=== PATIENT | female | born 1955 | race Caucasian/White ===

== ENCOUNTER → 2018-03-10 09:49 | Outpatient (CLI) | payer OTHER, SELFPAY ==
--- NOTE | 2018-03-10 09:53 | DI.MG.S_ITS ---
BILATERAL DIGITAL SCREENING MAMMOGRAM 3D/2D WITH CAD: 03/10/2018 CLINICAL: Routine screening. Comparison is made to exams dated: 12/20/2016 mammogram, 07/31/2015 mammogram, and 07/07/2014 mammogram - [facility]. There are scattered fibroglandular elements in both breasts. Current study was also evaluated with a Computer Aided Detection (CAD) system. No significant masses, calcifications, or other findings are seen in either breast. There has been no significant interval change. IMPRESSION: NEGATIVE There is no mammographic evidence of malignancy. A 1 year screening mammogram is recommended. This exam was interpreted at Station ID: [id number]. NOTE: For mammograms, a report in lay terms will be sent to the patient. Approximately 15% of breast malignancies will not be visualized mammographically. In the management of a palpable breast mass, a negative mammogram must not discourage biopsy of a clinically suspicious lesion. Electronically Signed By: Sreedhar kirkland/mercedes:03/11/2018 08:38:05 letter sent: Normal Exam ACR BI-RADS Category 1: Negative [id number]
== END ==
PROVIDERS: PCP Family Medicine; Visit Provider Family Medicine
DX: Z12.31 Encounter for screening mammogram for malignant neoplasm of breast (principal); M85.852 Other specified disorders of bone density and structure, left thigh; Z78.0 Asymptomatic menopausal state; E07.9 Disorder of thyroid, unspecified; Z90.722 Acquired absence of ovaries, bilateral
CPT/HCPCS: 77063; 77067; 77080

== ENCOUNTER → 2018-03-16 10:45 | Outpatient (CLI) | payer OTHER, SELFPAY | PROVIDERS: PCP Family Medicine; Visit Provider Physician Assistant | DX: N39.0 Urinary tract infection, site not specified (principal) | CPT/HCPCS: 87077; 87086; 87186 ==

== ENCOUNTER → 2019-03-16 11:36 | Outpatient (CLI) | payer MEDICARE, OTHER, SELFPAY ==
--- NOTE | 2019-03-16 | DI.MG.S_ITS ---
BILATERAL DIGITAL SCREENING MAMMOGRAM 3D/2D WITH CAD: 03/16/2019 CLINICAL: Routine screening. Comparison is made to exams dated: 03/10/2018 mammogram, 12/20/2016 mammogram, and 07/31/2015 mammogram - [facility]. There are scattered fibroglandular elements in both breasts. Current study was also evaluated with a Computer Aided Detection (CAD) system. No significant masses, calcifications, or other findings are seen in either breast. There has been no significant interval change. IMPRESSION: NEGATIVE There is no mammographic evidence of malignancy. A 1 year screening mammogram is recommended. This exam was interpreted at Station ID: [id number]. NOTE: For mammograms, a report in lay terms will be sent to the patient. Approximately 15% of breast malignancies will not be visualized mammographically. In the management of a palpable breast mass, a negative mammogram must not discourage biopsy of a clinically suspicious lesion. Electronically Signed By: Ema davenport/mercedes:03/16/2019 13:09:23 letter sent: Normal Exam ACR BI-RADS Category 1: Negative [id number]
== END ==
PROVIDERS: PCP Family Medicine; Visit Provider Family Medicine
DX: Z12.31 Encounter for screening mammogram for malignant neoplasm of breast (principal)
CPT/HCPCS: 77063; 77067

== ENCOUNTER → 2019-05-20 07:02 | Outpatient (CLI) | payer MEDICARE, OTHER, SELFPAY ==
[2019-05-20 08:12] LABS: Add Manual Diff / Slide Review NO; Basophils Absolute Auto 0 /uL (0-100); Basophils Percent Auto 0.5 % (0-2); Eosinophils Absolute Auto 100 /uL (0-450); Eosinophils Percent Auto 2.2 % (2-4); Hematocrit 41.3 % (36-46); Hemoglobin 13.8 g/dL (12.0-16.0); Lymphocytes Absolute Auto 1600 /uL (1100-4500); Lymphocytes Percent Auto 25.5 % (25-40); Mean Corpuscular HGB Conc 33.4 % (30-36); Mean Corpuscular Hemoglobin 29.2 PG (26-34); Mean Corpuscular Volume 87.4 fL (80-100); Monocytes Absolute Auto 500 /uL (0-900); Monocytes Percent Auto 7.1 % (3-14); Neutrophils Absolute Auto 4100 /uL (1500-7000); Neutrophils Percent Auto 64.7 % (50-75); Platelet Count 228 X10^3/uL (150-400); Red Blood Cell Count 4.73 X10^6/uL (4.0-5.2); Red Cell Distribution Width 13.5 % (11.6-14.8); White Blood Cell Count 6.3 X10^3/uL (4.5-11.0)
[2019-05-20 08:28] LABS: Alanine Aminotransferase 16 IU/L (9-52); Albumin 3.9 g/dL (3.5-5.0); Albumin Globulin Ratio 1.4 (1.0-2.8); Alkaline Phosphatase 86 U/L (38-126); Aspartate Aminotransferase 23 IU/L (14-36); BUN Creatinine Ratio 31.3 (6-22); Bilirubin Total 0.5 mg/dL (0.2-1.3); Blood Urea Nitrogen 25 mg/dL (7-17); Calcium 8.9 mg/dL (8.4-10.2); Carbon Dioxide 28 mmol/L (22-32); Chloride 108 mmol/L (98-107); Cholesterol 190 mg/dL (140-199); Estimated Glomerular Filt Rate > 60.0 mL/min (>60); Globulin 2.8 g/dL (1.7-4.1); Glucose 102 mg/dL (80-110); HDL Cholesterol 55 mg/dL (40-60); HEMOLYSIS < 15 (0-50); LDL Cholesterol Calculated 123 mg/dL (<100); Potassium 3.9 mmol/L (3.4-5.1); Sodium 142 mmol/L (137-145); Total Protein 6.7 g/dL (6.3-8.2); Triglycerides 59 mg/dL (35-150)
[2019-05-20 09:00] LABS: Thyroid Stimulating Hormone 2.02 uIU/mL (0.47-4.68)
== END ==
PROVIDERS: PCP Family Medicine; Visit Provider Family Medicine
DX: E03.9 Hypothyroidism, unspecified (principal)
CPT/HCPCS: 36415; 80053; 80061; 84443; 85025

== ENCOUNTER → 2019-07-10 12:06 | Outpatient (CLI) | payer MEDICARE, OTHER, SELFPAY | PROVIDERS: PCP Family Medicine; Visit Provider Nurse Practitioner | DX: N30.01 Acute cystitis with hematuria (principal) | CPT/HCPCS: 87077; 87086; 87186 ==

== ENCOUNTER → 2020-09-21 09:40 | Outpatient (CLI) | payer MEDICARE, OTHER, SELFPAY | PROVIDERS: PCP Family Medicine; Referring Provider Family Medicine; Visit Provider Family Medicine | DX: Z13.820 Encounter for screening for osteoporosis (principal); M85.852 Other specified disorders of bone density and structure, left thigh; Z78.0 Asymptomatic menopausal state; E07.9 Disorder of thyroid, unspecified; Z90.722 Acquired absence of ovaries, bilateral | CPT/HCPCS: 77080 ==

== ENCOUNTER → 2020-10-12 08:30 | Outpatient (CLI) | payer MEDICARE, OTHER, SELFPAY | PROVIDERS: PCP Family Medicine; Referring Provider Family Medicine; Visit Provider Family Medicine | DX: Z12.39 Encounter for other screening for malignant neoplasm of breast (principal); Z53.20 Procedure and treatment not carried out because of patient's decision for unspecified reasons ==

== ENCOUNTER 2021-06-27 07:42 | Emergency (ER) | payer MEDICARE, OTHER, SELFPAY ==
[2021-06-27 07:50] VITALS: BP 181/87; PULSE 65; RESP 20; TEMP 36.3; O2SAT 94; BMI 25.1
--- NOTE | 2021-06-27 07:55 | ED_ITS ---
HPI - Abdominal Pain General Chief Complaint: Urogenital-Female Stated Complaint: Right abd/back pain Time Seen by Provider: 06/27/21 07:50 History of Present Illness HPI narrative: Patient is a 65-year-old female with history of kidney stones and hypothyroid presenting with right-sided flank pain and right pain. She said that she was fine last evening pain woke her from her sleep. Radiates from her stomach to her back. She feels nauseous. She does have painful frequent urination she denies any fever or chills. Initially this did not feel like a kidney stone but now in the emergency department she is writhing in pain and feels similar. Related Data Previous Rx's Medication Instructions Recorded Resmed AirSense 10 CPAP #1 ea 02/26/19 bupropion HCl 150 mg tablet,12 hr 150 mg PO DAILY #90 tab 08/03/20 sustained-release (Wellbutrin SR) levothyroxine 88 mcg tablet 88 mcg PO QAM #90 tab 08/03/20 (Synthroid) estradiol (Estrace) 1 g VAGINAL 3 TIMES WEEK #42.5 g 08/14/20 metronidazole 0.75 % topical gel 1 applic TOPICAL BID #45 g 11/01/20 lisinopril 20 mg tablet See Rx Instructions .ROUTE 04/05/21 .COMPLEX #90 tab cephalexin 500 mg capsule 500 mg PO BID 7 Days #14 cap 06/27/21 ondansetron 4 mg disintegrating 4 mg PO Q8H PRN #10 tab 06/27/21 tablet oxycodone-acetaminophen 5 mg-325 1 tab PO Q6H PRN #14 tab 06/27/21 mg tablet (Percocet) promethazine 25 mg rectal 25 mg AL Q6H PRN #12 ea 06/27/21 suppository Allergies Allergy/AdvReac Type Severity Reaction Status Date / Time carisoprodol [From SOMA] Allergy Unknown Verified 10/17/20 08:49 nitrofurantoin Allergy Unknown Verified 10/17/20 08:49 [NITROFURANTOIN] Sulfa (Sulfonamide Allergy Unknown Verified 10/17/20 08:49 Antibiotics) [SULFA (SULFONAMIDE ANTIBIOTICS)] Review of Systems Review of Systems Narrative: GENERAL: Denies chills, fatigue, malaise, fever, sweats, travel HEENT: Denies sinus pain, ear pain, sore throat, difficulty swallowing, neck pain RESPIRATORY: Denies dyspnea, cough, wheezing, hemoptysis, sputum. CARDIOVASCULAR: Denies chest pain, palpitations, orthopnea, edema GASTROINTESTINAL: Denies nausea, vomiting, abdominal pain, diarrhea, constipation, melena. : See HPI MUSCULOSKELETAL: Denies weakness, joint pain, or bony pain SKIN: No rash, no erythema, no pruritus NEUROLOGIC: Denies weakness, dizziness, headache, numbness, change in speech, confusion PSYCHIATRIC: No concerning psychosocial issues. 12 point review of systems is negative except for those stated above and HPI Patient History Medical History (Updated 06/27/21 @ 09:46 by Nadine Espinsoa DO) Diverticulosis Hypothyroidism (11/02/13) Rosacea (11/20/15) Sleep apnea Surgical History Anesthesia History of bilateral salpingo-oophorectomy (BSO) (2012) History of lithotripsy (2012) Status post surgery (07/17/10) Family History Brother Age: 69 Colon cancer Mother Cancer Pneumonia Ovarian cancer Father Lung cancer Colon cancer Alcoholism Grandfather OR (myocardial infarction) Grandmother No problems noted. Sister Diabetes mellitus Family/Other Ovarian cancer Family/Other Heart disease Family/Other Heart disease Family/Other Heart disease Family/Other Heart disease Family/Other Heart disease Family/Other Heart disease Social History marital status: Smoking Status: Never smoker alcohol intake: current (1-3 A WEEK ) substance use type: does not use Smoking Status: Never smoker Exam Initial Vital Signs Initial Vital Signs: Vital Signs Temperature 97.3 F L 06/27/21 07:50 Pulse Rate 65 06/27/21 07:50 Respiratory Rate 20 06/27/21 07:50 Blood Pressure 181/87 H 06/27/21 07:50 Pulse Oximetry 94 06/27/21 07:50 GENERAL: 65-year-old female appears in pain nauseous, with dry heaving HEENT: Head atraumatic,EOMI, pupils reactive, face symmetric, moist mucous membranes CARDIOVASCULAR: Regular rate and rhythm without murmurs, rubs or gallops. RESPIRATORY: Breath sounds equal bilaterally, no wheezes rales or rhonchi. ABDOMEN: Soft, nontender. Normoactive bowel sounds all 4 quadrants. No guarding or rebound. : Right CVA tenderness EXTREMITIES: Normal range of motion, no clubbing or edema. Neurovascularly intact NEUROLOGICAL: Alert and oriented x4.Normal gait and speech. SKIN: Warm, dry, no laceration, no petechiae, no rashes or lesions. Course Orders Ordered: ED Orders 06/27/21 08:00 Complete Blood Count AUTO DIFF Stat Comprehensive Metabolic Panel Stat Lipase Stat Urinalysis and Microscopic Stat Urine Culture Stat 06/27/21 08:02 CT kidney ureter bladder (KUB) Stat Discontinued Medications Hydromorphone HCl (Hydromorphone 1 Mg Inj) 1 mg IV NOW ONE Stop: 06/27/21 08:20 Last Admin: 06/27/21 08:29 Dose: 1 mg Documented by: MARGARETTE Sodium Chloride (Normal Saline 0.9%) 1,000 mls @ 1,000 mls/hr IV CONT ODALIS Last Infusion: 06/27/21 11:17 Dose: 0 mls/hr Documented by: Admin: 06/27/21 08:08 Dose: 1,000 mls/hr Documented by: RUTHY Lidocaine HCl 5.1 ml/ Sodium (Chloride) 55.1 mls @ 330.6 mls/hr IV NOW ONE Stop: 06/27/21 08:36 Last Infusion: 06/27/21 09:30 Dose: 0 mls/hr Documented by: Admin: 06/27/21 09:06 Dose: 330.6 mls/hr Documented by: RUTHY Ketorolac Tromethamine (Ketorolac 30 Mg/Ml Vial) 30 mg IV NOW ONE Stop: 06/27/21 07:54 Last Admin: 06/27/21 08:08 Dose: 30 mg Documented by: RUTHY Morphine Sulfate (Morphine 2 Mg/Ml Inj) 2 mg IV NOW ONE Stop: 06/27/21 08:10 Last Admin: 06/27/21 08:11 Dose: 2 mg Documented by: RUTHY Ondansetron HCl (Ondansetron 4 Mg/2 Ml Inj) 4 mg IV NOW ONE Stop: 06/27/21 07:54 Last Admin: 06/27/21 08:08 Dose: 4 mg Documented by: RUTHY Vital Signs Vital signs: Vital Signs - 8 hr 06/27/21 07:50 06/27/21 09:12 06/27/21 09:30 Temperature 97.3 F L Pulse Rate 65 71 68 Respiratory Rate 20 Blood Pressure 181/87 H 172/114 H 174/81 H Pulse Oximetry 94 99 97 06/27/21 10:00 06/27/21 11:25 Temperature Pulse Rate 80 66 Respiratory Rate Blood Pressure 192/94 H 145/72 H Pulse Oximetry 97 98 MDM - Abdominal Pain Lab Data Result diagrams: 06/27/21 08:00 06/27/21 08:00 Labs: Lab Results 06/27/21 06/27/21 06/27/21 Range/Units 08:00 08:00 08:00 WBC 8.4 (4.5-11.0) X10^3/uL RBC 4.96 (4.0-5.2) X10^6/uL Hgb 14.4 (12.0-16.0) g/dL Hct 43.6 (36-46) % MCV 88.0 (80-100) fL MCH 29.1 (26-34) PG MCHC 33.0 (30-36) % RDW 13.2 (11.6-14.8) % Plt Count 272 (150-400) X10^3/uL Neut % (Auto) 56.9 (50-75) % Lymph % (Auto) 32.7 (25-40) % Martin % (Auto) 7.2 (3-14) % Eos % (Auto) 1.9 L (2-4) % Baso % (Auto) 1.3 (0-2) % Neut # (Auto) 4800 (0763-5646) /uL Lymph # (Auto) 2800 (0170-9408) /uL Martin # (Auto) 600 (0-900) /uL Eos # (Auto) 200 (0-450) /uL Baso # (Auto) 100 (0-100) /uL Sodium 138 (137-145) mmol/L Potassium 4.3 (3.4-5.1) mmol/L Chloride 106 (98-107) mmol/L Carbon Dioxide 23 (22-32) mmol/L BUN 18 H (7-17) mg/dL Creatinine 0.90 (0.52-1.04) mg/dL Estimated GFR > 60.0 (>60) mL/min BUN/Creatinine Ratio 20.0 (6-22) Glucose 112 H (80-110) mg/dL Calcium 9.5 (8.4-10.2) mg/dL Total Bilirubin 1.1 (0.2-1.3) mg/dL AST 23 (14-36) IU/L ALT 12 (<35) IU/L Alkaline Phosphatase 65 (38-126) U/L Total Protein 7.4 (6.3-8.2) g/dL Albumin 4.5 (3.5-5.0) g/dL Globulin 2.9 (1.7-4.1) g/dL Albumin/Globulin Ratio 1.6 (1.0-2.8) Lipase 53 (23-300) U/L Urine Color Yellow Urine Appearance Clear Urine pH 8.0 (4.5-8.0) Ur Specific [place] 1.010 (1.000-1.035) Urine Protein Negative (Negative) Urine Glucose (UA) Negative (Negative) g/dL Urine Ketones Negative (NEGATIVE) Urine Occult Blood Negative (Negative) Urine Nitrate Negative (Negative) Urine Bilirubin Negative (NEGATIVE) Urine Urobilinogen 0.2 (0.2) E.U./dL Ur Leukocyte Esterase Trace H (NEGATIVE) Urine RBC None seen (0-5/HPF) Urine WBC 10-30/hpf H (0-5/HPF) Ur Squamous Epith Cells 0-1 /hpf (0-5/HPF) Amorphous Sediment 3+ Urine Bacteria Moderate (10-30) H (None) Ur Culture Indicated? Specimen cultured Imaging Data CT scan - abdomen/pelvis: Radiologist's Impression: P all ROCEDURE:? CT KIDNEY URETER BLADDER (KUB) ? INDICATIONS:? right flank pain ? TECHNIQUE:? Axial sections were acquired from the lung bases to the pubic symphysis.? Coronal and sagittal reformats were performed.? For radiation dose reduction, the following was used: ?automated exposure control, adjustment of mA and/or kV according to patient size.? ? COMPARISON:? [facility], CT, ABDOMEN/PELVIS WITH CONTRAST, 09/02/2017, 10:52.? [facility], CT, KIDNEY/ URETER/BLADDER, 11/19/2013, 11:21. ? FINDINGS:? Image quality:? Excellent.? ? Lung bases:? Unremarkable.? ? Heart:? Minimal pericardial effusion.? Normal heart size. ? URINARY: Right Kidney:? No stones.? Iidv-yg-egsssiwd hydronephrosis.? Right Ureter:? Mngj-om-jupbnsvl hydroureter to just proximal to the ur eterovesical junction, where there is a 4 mm obstructing stone.? ? Left Kidney: ? No stones or hydronephrosis. Left Ureter:? No hydroureter.? ? Bladder:? Normal wall thickness. No stones. ? ? ? ABDOMEN: Liver:? Unchanged low-density left lobe liver lesion, known to be a hemangioma, measuring approximately 2.2 cm.? No suspicious masses identified .? ? Gallbladder:? Unremarkable.? ? Biliary ducts:? Unremarkable.? ? Pancreas:? Unremarkable.? ? Spleen:? Unremarkable.? ? Adrenal Glands:? Unremarkable.? ? ? Stomach and Bowel:? Small hiatal hernia.? Extensive sigmoid diverticulosis without evidence of diverticulitis.? Mobile sigmoid.? No dilated loops.? No wall thickening. Peritoneum:? No abnormal intraperitoneal fluid.? No free air.? ? Ventral Wall: ? No hernia.? Abdominal Nodes:? No enlarged retroperitoneal or mesenteric lymph nodes.? Vessels:? Aorta and inferior vena cava are normal in size.? ? PELVIS: Pelvic Organs:? Numerous small calcified uterine fibroids. Pelvic Nodes: Unremarkable. Miscellaneous: No inguinal hernias are seen. ? ? ? Bones:? Mild degenerative change. ? IMPRESSION:? ? 1. A 4 mm stone obstructs the distal right ureter just above the ureterovesical junction, resulting in uwhu-ae-ioslstbk hydronephrosis. ? 2. Extensive sigmoid diverticulosis without evidence of diverticulitis. ? 3. Small hiatal hernia. ? 4. Known left lobe liver hemangioma.? Dictated by: Jm Smith M.D. on 06/27/2021 at 8:13 ? ? [facility] Narrative Medical decision making narrative: Patient is writhing in pain she has been given multiple medications Toradol morphine dilaudid and lidocaine. Pain seems to be more under control. CT confirms that she has a 4 mm stone. Blood work is overall reassuring she does have some bacteria in her urine and will likely require antibiotics. At this time patient does not require admission. Discussion of pain control at home and when to return to the emergency department. She has had reactions to hydrocodone and Percocet and she is requesting p.o. Dilaudid which I have explained to her is not an option. She finally agrees to hydrocodone and to anti nausea medication Discharge Plan Departure Patient Disposition: Home Clinical Impression: Kidney stone on right side, Acute UTI Instructions: DI for Kidney Stones, DI for Urinary Tract Infection (UTI) Activity Restrictions/Additional Instructions: *You have been diagnosed with kidney stone on the right side and UTI *What to do: Your kidney stone is 4 mm. You should pass this. It will be painful but the goal is for pain to be tolerated at home. Will need to drink water or Gatorade. *Continue to take medications as directed--> SENT TO [facility] [place] Motrin 600mg every 6-8 hours if needed for whdy-sr-gegfetcz pain (Next dose 4:30 PM) Zofran 4 mg every 8 hours for nausea or vomiting Phenergan 25 mg suppository if needed for persistent nausea or vomiting Percocet 2 tablet every 6 hours for severe pain Keflex 500 mg 2 times a day for 7 days *Follow up with your primary care provider in 2-3 days *Return to ER if you should have pain is uncontrolled, fever, persistent vomiting, not drinking fluids or any new, worsening or concerning symptoms CONTROLLED SUBSTANCE DISCHARGE (Narcotoic/benzodiazepine/Flexeril/Phenergan) 1. You have been prescribed narcotic medications, it does have acetaminophe n/Tylenol/paracetamol in it, DO NOT TAKE MORE THAN 4,00mg in 24 hours of Tylenol. TRAMADOL DOES NOT CONTAIN TYLENOL 2. Please understand that we cannot provide further refills of narcotics, benzodiazepines or controlled substances through the ED and her pain management will need to be through your provider. 3. While on these medications you cannot drive or operate heavy machinery. 4. You cannot sign legal documents or perform any duties such as this. 5. As long as you're taking opiate pain medications he should also be taking a stool softener such as Colace, Dulcolax, MiraLAX or prune juice, to help avoid constipation. Prescriptions: New promethazine 25 mg suppository 25 mg AL Q6H PRN (Reason: nausea and vomiting) Qty: 12 RF: 0 ondansetron 4 mg tablet,disintegrating 4 mg PO Q8H PRN (Reason: nausea and vomiting) Qty: 10 RF: 0 oxycodone-acetaminophen [Percocet] 5-325 mg tablet 1 tab PO Q6H PRN (Reason: pain) Qty: 14 RF: 0 cephalexin 500 mg capsule 500 mg PO BID 7 Days Qty: 14 RF: 0 No Action (DME) Resmed AirSense 10 CPAP Qty: 1 RF: 0 bupropion HCl [Wellbutrin SR] 150 mg tablet sustained-release 12 hr 150 mg PO DAILY Qty: 90 RF: 3 levothyroxine [Synthroid] 88 mcg tablet 88 mcg PO QAM Qty: 90 RF: 3 estradiol [Estrace] 0.01 % (0.1 mg/gram) cream 1 g Vaginal 3 TIMES WEEK Qty: 42.5 RF: 3 metronidazole 0.75 % gel 1 applic topical BID Qty: 45 RF: 2 lisinopril 20 mg tablet See Rx Instructions .ROUTE .COMPLEX Qty: 90 RF: 3 Referrals: Bertrand Rocha MD [Primary Care Provider] -
--- NOTE | 2021-06-27 08:02 | DI.CT.S_ITS ---
P all ROCEDURE: CT KIDNEY URETER BLADDER (KUB) INDICATIONS: right flank pain TECHNIQUE: Axial sections were acquired from the lung bases to the pubic symphysis. Coronal and sagittal reformats were performed. For radiation dose reduction, the following was used: automated exposure control, adjustment of mA and/or kV according to patient size. COMPARISON: [facility], CT, ABDOMEN/PELVIS WITH CONTRAST, 09/02/2017, 10:52. [facility], CT, KIDNEY/ URETER/BLADDER, 11/19/2013, 11:21. FINDINGS: Image quality: Excellent. Lung bases: Unremarkable. Heart: Minimal pericardial effusion. Normal heart size. URINARY: Right Kidney: No stones. Gyvf-im-qdukmstv hydronephrosis. Right Ureter: Kazq-ig-azjpslnh hydroureter to just proximal to the ureterovesical junction, where there is a 4 mm obstructing stone. Left Kidney: No stones or hydronephrosis. Left Ureter: No hydroureter. Bladder: Normal wall thickness. No stones. ABDOMEN: Liver: Unchanged low-density left lobe liver lesion, known to be a hemangioma, measuring approximately 2.2 cm. No suspicious masses identified . Gallbladder: Unremarkable. Biliary ducts: Unremarkable. Pancreas: Unremarkable. Spleen: Unremarkable. Adrenal Glands: Unremarkable. Stomach and Bowel: Small hiatal hernia. Extensive sigmoid diverticulosis without evidence of diverticulitis. Mobile sigmoid. No dilated loops. No wall thickening. Peritoneum: No abnormal intraperitoneal fluid. No free air. Ventral Wall: No hernia. Abdominal Nodes: No enlarged retroperitoneal or mesenteric lymph nodes. Vessels: Aorta and inferior vena cava are normal in size. PELVIS: Pelvic Organs: Numerous small calcified uterine fibroids. Pelvic Nodes: Unremarkable. Miscellaneous: No inguinal hernias are seen. Bones: Mild degenerative change. IMPRESSION: 1. A 4 mm stone obstructs the distal right ureter just above the ureterovesical junction, resulting in otdo-ut-rwpmzupp hydronephrosis. 2. Extensive sigmoid diverticulosis without evidence of diverticulitis. 3. Small hiatal hernia. 4. Known left lobe liver hemangioma. Dictated by: Jm Smith M.D. on 06/27/2021 at 8:13 Approved by: Jm Smith M.D. on 06/27/2021 at 8:22
[2021-06-27] MEDS: SODIUM CHLORIDE 0.9% 1,000 ML 1000 ML IV (08:08)
[2021-06-27] MEDS: KETOROLAC 30 MG/ML VIAL IV (08:08)
[2021-06-27] MEDS: ONDANSETRON 4 MG/2 ML INJ IV (08:08)
[2021-06-27] MEDS: MORPHINE 2 MG/ML INJ IV (08:11)
[2021-06-27 08:14] LABS: Add Manual Diff / Slide Review NO; Basophils Absolute Auto 100 /uL (0-100); Basophils Percent Auto 1.3 % (0-2); Eosinophils Absolute Auto 200 /uL (0-450); Eosinophils Percent Auto 1.9 % (2-4); Hematocrit 43.6 % (36-46); Hemoglobin 14.4 g/dL (12.0-16.0); Lymphocytes Absolute Auto 2800 /uL (1100-4500); Lymphocytes Percent Auto 32.7 % (25-40); Mean Corpuscular Hemoglobin 29.1 PG (26-34); Monocytes Absolute Auto 600 /uL (0-900); Monocytes Percent Auto 7.2 % (3-14); Neutrophils Absolute Auto 4800 /uL (1500-7000); Neutrophils Percent Auto 56.9 % (50-75); Platelet Count 272 X10^3/uL (150-400); Red Blood Cell Count 4.96 X10^6/uL (4.0-5.2); Red Cell Distribution Width 13.2 % (11.6-14.8); White Blood Cell Count 8.4 X10^3/uL (4.5-11.0)
[2021-06-27 08:26] LABS: Alanine Aminotransferase 12 IU/L (<35); Albumin 4.5 g/dL (3.5-5.0); Albumin Globulin Ratio 1.6 (1.0-2.8); Alkaline Phosphatase 65 U/L (38-126); Appearance Urine UA CLEAR; Aspartate Aminotransferase 23 IU/L (14-36); Bilirubin Total 1.1 mg/dL (0.2-1.3); Bilirubin Urine UA NEGATIVE (NEGATIVE); Blood Urea Nitrogen 18 mg/dL (7-17); Calcium 9.5 mg/dL (8.4-10.2); Carbon Dioxide 23 mmol/L (22-32); Chloride 106 mmol/L (98-107); Color Urine UA YELLOW; Estimated Glomerular Filt Rate > 60.0 mL/min (>60); Globulin 2.9 g/dL (1.7-4.1); Glucose 112 mg/dL (80-110); Glucose Urine UA NEGATIVE (Negative); HEMOLYSIS 20 (0-50); Ketones Urine UA NEGATIVE (NEGATIVE); Leukocyte Esterase Urine UA TRACE (NEGATIVE); Lipase 53 U/L (23-300); Nitrite Urine UA NEGATIVE (Negative); Occult Blood Urine UA NEGATIVE (Negative); Potassium 4.3 mmol/L (3.4-5.1); Protein Urine UA NEGATIVE (Negative); Sodium 138 mmol/L (137-145); Total Protein 7.4 g/dL (6.3-8.2); Urobilinogen Urine UA 0.2 E.U./dL (0.2)
[2021-06-27] MEDS: HYDROMORPHONE 1 MG INJ IV (08:29)
[2021-06-27 08:33] LABS: RBC Urine None Seen (0-5/HPF)
[2021-06-27 08:34] LABS: Amorphous Sediment Urine 3+; Bacteria Urine Moderate (10-30); Culture Indicated Urine Specimen Cultured; Squamous Epithelial Cell Urine 0-1 /HPF (0-5/HPF); WBC Urine 10-30/HPF (0-5/HPF)
[2021-06-27] MEDS: LIDOCAINE 2% 5.1 ML in SODIUM CHLORIDE 0.9% 50 ML 330.6 ML IV (09:06)
[2021-06-27 09:12] VITALS: BP 172/114; PULSE 71; O2SAT 99
[2021-06-27 09:30] VITALS: BP 174/81; PULSE 68; O2SAT 97
[2021-06-27 10:00] VITALS: BP 192/94; PULSE 80; O2SAT 97
[2021-06-27 11:25] VITALS: BP 145/72; PULSE 66; O2SAT 98
== END 2021-06-27 11:37 | disposition home or self-care (01) ==
PROVIDERS: Emergency Provider Emergency Medicine; PCP Family Medicine
DX: N20.0 Calculus of kidney (principal); N39.0 Urinary tract infection, site not specified
CPT/HCPCS: 36415; 74176; 80053; 81001; 83690; 85025; 87077; 87086; 87186; 96361; 96365; 96375; 99284; J1170; J1885; J2270; J2405

== ENCOUNTER 2021-06-29 05:25 | Observation (INO) | payer MEDICARE, OTHER, SELFPAY ==
[2021-06-29] VITALS (16 sets, daily range): BP systolic 88–129; BP diastolic 52–95; PULSE 84–108; RESP 12–20; TEMP 36.6–37.4; O2SAT 93–99; BMI 24.2
--- NOTE | 2021-06-29 | DI.RAD.S_ITS ---
PROCEDURE: XR ABDOMEN 1V INDICATIONS: RIGHT STENT PLACEMENT TECHNIQUE: One fluoroscopic view of the abdomen acquired. COMPARISON: [facility], ABDOMEN 1 VIEW, 05/08/2017, 13:46. [facility], ABDOMEN 1 VIEW, 11/13/2013, 10:51. FINDINGS: Superior portion of the right ureteral stent projects in the expected region of the right kidney. IMPRESSION: Image guidance provided. Dictated by: Domo Briceño M.D. on 06/29/2021 at 9:49 Approved by: Domo Briceño M.D. on 06/29/2021 at 9:50
[2021-06-29 05:55] LABS: Add Manual Diff / Slide Review NO; Basophils Absolute Auto 200 /uL (0-100); Basophils Percent Auto 0.8 % (0-2); Eosinophils Absolute Auto 100 /uL (0-450); Eosinophils Percent Auto 0.3 % (2-4); Hematocrit 39.6 % (36-46); Hemoglobin 13.4 g/dL (12.0-16.0); Lymphocytes Absolute Auto 500 /uL (1100-4500); Lymphocytes Percent Auto 2.3 % (25-40); Mean Corpuscular HGB Conc 33.7 % (30-36); Mean Corpuscular Hemoglobin 29.5 PG (26-34); Mean Corpuscular Volume 87.5 fL (80-100); Monocytes Absolute Auto 600 /uL (0-900); Monocytes Percent Auto 2.9 % (3-14); Neutrophils Absolute Auto 20400 /uL (1500-7000); Neutrophils Percent Auto 93.7 % (50-75); Platelet Count 147 X10^3/uL (150-400); Red Blood Cell Count 4.53 X10^6/uL (4.0-5.2); Red Cell Distribution Width 13.5 % (11.6-14.8); White Blood Cell Count 21.8 X10^3/uL (4.5-11.0)
[2021-06-29] MEDS: SODIUM CHLORIDE 0.9% 1,000 ML 1000 ML IV (05:57)
[2021-06-29] MEDS: ONDANSETRON 4 MG/2 ML INJ IV (05:57)
[2021-06-29] MEDS: KETOROLAC 30 MG/ML VIAL 15 MG IV (05:58)
[2021-06-29 05:59] LABS: Appearance Urine UA Slightly Cloudy; Bilirubin Urine UA NEGATIVE (NEGATIVE); Color Urine UA YELLOW; Glucose Urine UA NEGATIVE (Negative); Ketones Urine UA NEGATIVE (NEGATIVE); Leukocyte Esterase Urine UA TRACE (NEGATIVE); Nitrite Urine UA NEGATIVE (Negative); Occult Blood Urine UA 2+ (Negative); Protein Urine UA 1+ (Negative); Specific Gravity Urine UA 1.015 (1.000-1.035); Urobilinogen Urine UA 0.2 E.U./dL (0.2)
[2021-06-29 06:02] LABS: RBC Urine 0-1/HPF (0-5/HPF); WBC Urine 5-10/HPF (0-5/HPF)
[2021-06-29 06:03] LABS: Granular Casts Urine 0-1/LPF; Squamous Epithelial Cell Urine 10-30 /HPF (0-5/HPF)
[2021-06-29 06:04] LABS: Bacteria Urine Moderate (10-30); Culture Indicated Urine Cult Not Indicated
[2021-06-29 06:06] LABS: BUN Creatinine Ratio 14.4 (6-22); Blood Urea Nitrogen 31 mg/dL (7-17); Carbon Dioxide 21 mmol/L (22-32); Chloride 103 mmol/L (98-107); Estimated Glomerular Filt Rate 22.7 mL/min (>60); Glucose 128 mg/dL (80-110); HEMOLYSIS < 15 (0-50); Sodium 134 mmol/L (137-145)
--- NOTE | 2021-06-29 06:11 | DI.US.S_ITS ---
PROCEDURE: US RENAL COMPLETE INDICATIONS: RIGHT URETER STONE KNOWN. ACUTE KIDNEY INJURY. TECHNIQUE: Real-time scanning was performed of the kidneys and bladder, with image documentation. COMPARISON: [facility], CT, ABDOMEN/PELVIS WITH CONTRAST, 09/02/2017, 10:52. [facility], CT, CT KIDNEY URETER BLADDER (KUB), 06/27/2021, 8:06. FINDINGS: Kidneys: Kidneys are normal in size. Right kidney measures 11.3 cm long; left kidney measures 10.9 cm long. Right renal cortical thickness is 1.1 cm; left renal cortical thickness is 1.2 cm. Renal cortical echotexture is normal. No suspicious solid mass lesions. Mild to moderate right kidney hydronephrosis. The proximal right ureter measures 1.4 cm. No left kidney hydronephrosis. Bladder: Pre-void bladder volume is 70 mL. Ureteral jets are not seen. The patient did not need to void. Miscellaneous: No free pelvic fluid. Gallbladder is prominent in size. There is gallbladder sludge. No sonographic Carvajal's sign. No pericholecystic fluid. No gallbladder wall thickening appreciated. CBD is within normal limits. Incidentally in the right lobe of the liver is a hyperechoic focus measuring at 2.2 x 1.9 x 1.5 cm. This is seen on prior CTs and prior ultrasound. On the ultrasound from 2016 this measured 2.2 cm. This is consistent with a hemangioma. IMPRESSION: 1. Mild to moderate right kidney hydronephrosis. (Small obstructing distal calculus seen on recent CT KUB). 2. Prominent gallbladder with sludge. 3. Right hepatic hemangioma is again seen. This report is concordant with the overnight preliminary interpretation. Dictated by: Domo Briceño M.D. on 06/29/2021 at 8:34 Approved by: Domo Briceño M.D. on 06/29/2021 at 8:43
--- NOTE | 2021-06-29 06:19 | ED.NAVMDI ---
HPI - Nausea/Vomiting/Diarrhea General Chief complaint: Nausea/Vomiting/Diarrhea Stated complaint: kidney stone problems Time Seen by Provider: 06/29/21 05:32 Source: patient Mode of arrival: Wheelchair Limitations: no limitations History of Present Illness HPI Narrative: 65-year-old female nonsmoker with history of recently diagnosed right-sided kidney stone return hospital she plan unrelenting vomiting, unable to anything, persistent right lower quadrant pain, dizziness, weakness and lightheadedness. She was seen and evaluated a few days ago and found to have a 4 mm stone in her right UVJ. She was treated also for urinary tract infection and sent home on typical therapies. Since then she has had persistent vomiting, having difficulty keeping anything down though she does think that she likely kept her antibiotics on board. She has felt weak and fatigued and generally unwell. Her last oral intake was about 5-6 hours ago. Related Data Previous Rx's Medication Instructions Recorded Resmed AirSense 10 CPAP #1 ea 02/26/19 bupropion HCl 150 mg tablet,12 hr 150 mg PO DAILY #90 tab 08/03/20 sustained-release (Wellbutrin SR) levothyroxine 88 mcg tablet 88 mcg PO QAM #90 tab 08/03/20 (Synthroid) estradiol (Estrace) 1 g VAGINAL 3 TIMES WEEK #42.5 g 08/14/20 metronidazole 0.75 % topical gel 1 applic TOPICAL BID #45 g 11/01/20 lisinopril 20 mg tablet See Rx Instructions .ROUTE 04/05/21 .COMPLEX #90 tab ondansetron 4 mg disintegrating 4 mg PO Q8H PRN #10 tab 06/27/21 tablet oxycodone-acetaminophen 5 mg-325 1 tab PO Q6H PRN #14 tab 06/27/21 mg tablet (Percocet) promethazine 25 mg rectal 25 mg [place] Q6H PRN #12 ea 06/27/21 suppository ciprofloxacin HCl 500 mg tablet 500 mg PO BID #30 tab 06/29/21 Allergies Allergy/AdvReac Type Severity Reaction Status Date / Time carisoprodol [From SOMA] Allergy Unknown Verified 10/17/20 08:49 nitrofurantoin Allergy Unknown Verified 10/17/20 08:49 [NITROFURANTOIN] Sulfa (Sulfonamide Allergy Unknown Verified 10/17/20 08:49 Antibiotics) [SULFA (SULFONAMIDE ANTIBIOTICS)] Review of Systems Review of Systems Narrative: GENERAL: See HPI HEENT: Denies sinus pain, ear pain, sore throat, difficulty swallowing, dizziness. RESPIRATORY: Denies dyspnea, cough, wheezing, hemoptysis, sputum. CARDIOVASCULAR: Denies chest pain, palpitations, orthopnea, edema, GASTROINTESTINAL: See HPI : See HPI MUSCULOSKELETAL: denies weakness, joint pain, or bony pain SKIN: Denies rash, skin lesions, or other NEUROLOGIC: Denies weakness, headache, numbness, change in speech, confusion, seizures, incoordination. PSYCHIATRIC: No concerning psychosocial issues. 12 point review of systems is negative except for those stated above Patient History Medical History (Updated 06/29/21 @ 07:48 by Bhanu Medina MD) Diverticulosis Hypothyroidism (11/02/13) Pyelonephritis of right kidney Right ureteral calculus Rosacea (11/20/15) Sleep apnea Surgical History Anesthesia History of bilateral salpingo-oophorectomy (BSO) (2012) History of lithotripsy (2012) Status post surgery (07/17/10) Family History Brother Age: 69 Colon cancer Mother Cancer Pneumonia Ovarian cancer Father Lung cancer Colon cancer Alcoholism Grandfather [place] (myocardial infarction) Grandmother No problems noted. Sister Diabetes mellitus Family/Other Ovarian cancer Family/Other Heart disease Family/Other Heart disease Family/Other Heart disease Family/Other Heart disease Family/Other Heart disease Family/Other Heart disease Social History marital status: Smoking Status: Never smoker alcohol intake: current substance use type: does not use Smoking Status: Never smoker Substance Use Type: does not use Exam Narrative Exam Narrative: GENERAL: 65 [] year old patient appears stated age. Well-developed patient, in mild distress. HEAD: Atraumatic. Normocephalic. EYES: Pupils equal round and reactive. Extraocular motions intact. No scleral icterus. No injection or drainage. ENT: Dry mucous membranes Nose without bleeding, purulent drainage. Throat without erythema, tonsillar hypertrophy or exudate. Airway patent. NECK: Trachea midline. Non tender CARDIOVASCULAR: Tachycardic but regular rhythm without murmurs, gallops, or rubs. RESPIRATORY: Clear to auscultation. Breath sounds equal bilaterally. No wheezes, rales, or rhonchi. GASTROINTESTINAL: Abdomen soft, non-tender, nondistended. EXTREMITIES: No edema or joint tenderness. BACK: Nontender without deformity or crepitance. No flank tenderness. NEURO: AOx3. SKIN: No rash or erythema of visible areas Initial Vital Signs Initial Vital Signs: Vital Signs Temperature 98 F 06/29/21 05:30 Pulse Rate 106 H 06/29/21 05:30 Respiratory Rate 20 06/29/21 05:30 Blood Pressure 107/67 06/29/21 05:30 Pulse Oximetry 96 06/29/21 05:30 Course Orders Ordered: Discontinued Medications Acetaminophen (Acetaminophen 325 Mg Tablet) 975 mg PO PACUNOW ONE Stop: 06/29/21 08:27 Belladonna Alkaloids/Opium (Belladonna/Opium Suppositories) 1 each [place] NOW ONE Stop: 06/29/21 08:31 Last Admin: 06/29/21 08:30 Dose: 1 each Documented by: YANIRA Benzocaine (Benzocaine/Menthol 1 Dashawn Pkt) 1 each PO NOW ONE Stop: 06/29/21 09:04 Last Admin: 06/29/21 09:07 Dose: 1 each Documented by: KHOI Fentanyl (Fentanyl 100 Mcg/2 Ml Inj) 0 mcg IV Q5MIN PRN PRN Reason: Pain, Moderate (4-6) Fentanyl (Fentanyl 100 Mcg/2 Ml Inj) 0 mcg IV Q5M PRN PRN Reason: Pain, Severe (7-10) Hydroxyzine HCl (Hydroxyzine 50 Mg/Ml Inj) 25 mg IM NOW PRN PRN Reason: Pain, Mild (1-3) Sodium Chloride (Normal Saline 0.9%) 1,000 mls @ 1,000 mls/hr IV BOLUS ONE Stop: 06/29/21 06:32 Last Infusion: 06/29/21 06:25 Dose: 0 mls/hr Documented by: Admin: 06/29/21 05:57 Dose: 1,000 mls/hr Documented by: DARRELL Lactated Ringer's (Lactated Ringers) 1,000 mls @ 1,000 mls/hr IV BOLUS ONE Stop: 06/29/21 07:09 Last Infusion: 06/29/21 07:30 Dose: 0 mls/hr Documented by: Admin: 06/29/21 06:36 Dose: 1,000 mls/hr Documented by: DARRELL Lidocaine HCl 5.1 ml/ Sodium (Chloride) 55.1 mls @ 330.6 mls/hr IV NOW ONE Stop: 06/29/21 06:11 Last Admin: 06/29/21 07:30 Dose: Not Given Documented by: ELIANE Ceftriaxone Sodium 1,000 mg/ (Sodium Chloride) 100 mls @ 200 mls/hr IV NOW ONE Stop: 06/29/21 06:24 Last Infusion: 06/29/21 07:30 Dose: 0 mls/hr Documented by: Admin: 06/29/21 06:30 Dose: 200 mls/hr Documented by: DARRELL Lactated Ringer's (Lactated Ringers) 500 mls @ 25 mls/hr IV CONT ODALIS Ketorolac Tromethamine (Ketorolac 30 Mg/Ml Vial) 15 mg IV NOW ONE Stop: 06/29/21 05:34 Last Admin: 06/29/21 05:58 Dose: 15 mg Documented by: DARRELL Ondansetron HCl (Ondansetron 4 Mg/2 Ml Inj) 4 mg IV NOW ONE Stop: 06/29/21 05:52 Last Admin: 06/29/21 05:57 Dose: 4 mg Documented by: DARRELL Ondansetron HCl (Ondansetron 4 Mg/2 Ml Inj) 4 mg IV NOW PRN PRN Reason: Nausea And Vomiting Tamsulosin HCl (Tamsulosin 0.4 Mg Capsule) 0.4 mg PO NOW ONE Stop: 06/29/21 06:11 Last Admin: 06/29/21 06:30 Dose: 0.4 mg Documented by: DARRELL Vital Signs Vital signs: Vital Signs - 8 hr 06/29/21 05:30 Temperature 98 F Pulse Rate 106 H Respiratory Rate 20 Blood Pressure 107/67 Pulse Oximetry 96 MDM - Nausea/Vomiting/Diarrhea Lab Data Result diagrams: 06/29/21 05:50 06/29/21 05:50 Labs: Lab Results 06/29/21 06/29/21 06/29/21 Range/Units 04:30 05:50 05:50 WBC 21.8 H D (4.5-11.0) X10^3/uL RBC 4.53 (4.0-5.2) X10^6/uL Hgb 13.4 (12.0-16.0) g/dL Hct 39.6 (36-46) % MCV 87.5 (80-100) fL MCH 29.5 (26-34) PG MCHC 33.7 (30-36) % RDW 13.5 (11.6-14.8) % Plt Count 147 L (150-400) X10^3/uL Neut % (Auto) 93.7 H D (50-75) % Lymph % (Auto) 2.3 L D (25-40) % [place] % (Auto) 2.9 L (3-14) % Eos % (Auto) 0.3 L (2-4) % Baso % (Auto) 0.8 (0-2) % Neut # (Auto) 94618 H (7244-2766) /uL Lymph # (Auto) 500 L (5266-6772) /uL [place] # (Auto) 600 (0-900) /uL Eos # (Auto) 100 (0-450) /uL Baso # (Auto) 200 H (0-100) /uL Sodium 134 L (137-145) mmol/L Potassium 4.0 (3.4-5.1) mmol/L Chloride 103 (98-107) mmol/L Carbon Dioxide 21 L (22-32) mmol/L BUN 31 H (7-17) mg/dL Creatinine 2.16 H (0.52-1.04) mg/dL Estimated GFR 22.7 L (>60) mL/min BUN/Creatinine Ratio 14.4 (6-22) Glucose 128 H (80-110) mg/dL Calcium 9.0 (8.4-10.2) mg/dL Urine Color Yellow Urine Appearance Slightly cloudy Urine pH 5.0 (4.5-8.0) Ur Specific [place] 1.015 (1.000-1.035) Urine Protein 1+ H (Negative) Urine Glucose (UA) Negative (Negative) g/dL Urine Ketones Negative (NEGATIVE) Urine Occult Blood 2+ H (Negative) Urine Nitrate Negative (Negative) Urine Bilirubin Negative (NEGATIVE) Urine Urobilinogen 0.2 (0.2) E.U./dL Ur Leukocyte Esterase Trace H (NEGATIVE) Urine RBC 0-1/hpf (0-5/HPF) Urine WBC 5-10/hpf H (0-5/HPF) Ur Squamous Epith Cells 10-30 /hpf H D (0-5/HPF) Urine Bacteria Moderate (10-30) H (None) Granular Casts 0-1/lpf (None) Ur Culture Indicated? Cult not indicated MDM Narrative Medical decision making narrative: Patient with known right UVJ stone in the setting of a urinary tract infection returns with worsening labs now demonstrating leukocytosis of over 20,000 and a bump in her creatinine from normal top over 2. IV fluids administered, IV antibiotics given, urology contacted who request we keep the patient NPO and they will take her to the OR for stenting. Discharge Plan Departure Patient Disposition: Admitted to Surgery Clinical Impression: Kidney stone on right side Admit Date/Time: 06/29/21 06:29 Admit Provider: Bhanu Medina
[2021-06-29] MEDS: cefTRIAXone 1,000 MG in SODIUM CHLORIDE 0.9% 100 ML 200 ML IV (06:30)
[2021-06-29] MEDS: TAMSULOSIN 0.4 MG CAPSULE PO (06:30)
[2021-06-29] MEDS: LACTATED RINGERS 1,000 ML 1000 ML IV (06:36)
--- NOTE | 2021-06-29 06:38 | PC.NURSE ---
She has barely any pain now she said.Will hold off on Lido gtt for now,DR Darden aware.
--- NOTE | 2021-06-29 07:17 | SUR.OPER ---
Lithotomy on padded OR bed, head on pillow, arms secured on padded arm boards at <90 degrees abduction. Legs secured in padded yellow fins stirrups.
[2021-06-29 07:21] LABS: COVID19 -Nasal RAPID Negative (Negative)
--- NOTE | 2021-06-29 07:43 | P.HP_ITS ---
History of Present Illness History of Present Illness Date Patient Seen: 06/29/21 Time Patient Seen: 07:43 Date of Onset of Symptoms: 06/27/21 Chief complaint: kidney stone problems Narrative: The patient is a 65-year-old female was experiencing usual health until on or about 06/27/2021, which he experienced acute onset of severe right flank and abdominal pain. She had associated nausea and vomiting. She presented to [facility] ED, where evaluation identified probable UTI and imaging via CT KUB demonstrated an obstructing 4 mm right distal ureteral calculus. She is prescribed usual analgesics and Keflex. Because of unremittin g pain, nausea, and vomiting she again presented very early this morning for further evaluation and management. Urine culture still pending but currently has growth of Gram-negative bacillus. Dr. Darden administered ceftriaxone in the ED earlier this morning. Creatinine at presentation on 06/27/2021, was 0.9. WBC at that time was 8.4. Repeat laboratories 06/29/2021 demonstrated WBC of 21.4, and rising creatinine to 2.6. Patient History Medical History (Updated 06/29/21 @ 07:48 by Bhanu Medina MD) Diverticulosis Hypothyroidism (11/02/13) Pyelonephritis of right kidney Right ureteral calculus Rosacea (11/20/15) Sleep apnea Surgical History Anesthesia History of bilateral salpingo-oophorectomy (BSO) (2012) History of lithotripsy (2012) Status post surgery (07/17/10) Family & Social History Family History Brother Age: 69 Colon cancer Mother Cancer Pneumonia Ovarian cancer Father Lung cancer Colon cancer Alcoholism Grandfather [place] (myocardial infarction) Grandmother No problems noted. Sister Diabetes mellitus Family/Other Ovarian cancer Family/Other Heart disease Family/Other Heart disease Family/Other Heart disease Family/Other Heart disease Family/Other Heart disease Family/Other Heart disease Safety & Behavioral: Feels Safe in Current Yes Environment Tobacco & Substance use: Smoking Status Never smoker alcohol intake current Substance Use Type does not use Meds Home Medications and Allergies Home Medications Medication Instructions Recorded Confirmed Type Resmed AirSense 10 CPAP #1 ea 02/26/19 10/17/20 Rx bupropion HCl 150 mg tablet,12 hr 150 mg PO DAILY #90 tab 08/03/20 10/17/20 Rx sustained-release (Wellbutrin SR) levothyroxine 88 mcg tablet 88 mcg PO QAM #90 tab 08/03/20 10/17/20 Rx (Synthroid) estradiol (Estrace) 1 g VAGINAL 3 TIMES WEEK #42.5 g 08/14/20 10/17/20 Rx metronidazole 0.75 % topical gel 1 applic TOPICAL BID #45 g 11/01/20 Rx lisinopril 20 mg tablet See Rx Instructions .ROUTE 04/05/21 Rx .COMPLEX #90 tab cephalexin 500 mg capsule 500 mg PO BID 7 Days #14 cap 06/27/21 Rx ondansetron 4 mg disintegrating 4 mg PO Q8H PRN #10 tab 06/27/21 Rx tablet oxycodone-acetaminophen 5 mg-325 1 tab PO Q6H PRN #14 tab 06/27/21 Rx mg tablet (Percocet) promethazine 25 mg rectal 25 mg [place] Q6H PRN #12 ea 06/27/21 Rx suppository Allergies Allergy/AdvReac Type Severity Reaction Status Date / Time carisoprodol [From SOMA] Allergy Unknown Verified 10/17/20 08:49 nitrofurantoin Allergy Unknown Verified 10/17/20 08:49 [NITROFURANTOIN] Sulfa (Sulfonamide Allergy Unknown Verified 10/17/20 08:49 Antibiotics) [SULFA (SULFONAMIDE ANTIBIOTICS)] Review of Systems Review of Systems ROS: Yes All systems reviewed with the patient and are negative except as otherwise documented Exam Vital Signs (past 8 hours): - 06/29/21 05:30 06/29/21 07:28 Temperature 98 F Pulse Rate 106 H 92 H Respiratory Rate 20 20 Blood Pressure 107/67 127/78 Pulse Oximetry 96 99 Oxygen Delivery Method Room Air Narrative Exam Narrative: He is a well-developed and well-nourished ill-appearing woman in moderate distress. Head/neck-sclera clear and pupils are round and equal bilaterally. No visible evidence of adenopathy or JVD. Chest-equal, clear, and unlabored expansion bilaterally. Heart-normal sinus rhythm no abnormal heart tones appreciated. Objective Labs Result Diagrams: 06/29/21 05:50 06/29/21 05:50 Labs: Laboratory Results - last 24 hr 06/29/21 06/29/21 06/29/21 04:30 05:50 05:50 WBC 21.8 H D RBC 4.53 Hgb 13.4 Hct 39.6 MCV 87.5 MCH 29.5 MCHC 33.7 RDW 13.5 Plt Count 147 L Neut % (Auto) 93.7 H D Lymph % (Auto) 2.3 L D [place] % (Auto) 2.9 L Eos % (Auto) 0.3 L Baso % (Auto) 0.8 Neut # (Auto) 73992 H Lymph # (Auto) 500 L [place] # (Auto) 600 Eos # (Auto) 100 Baso # (Auto) 200 H Sodium 134 L Potassium 4.0 Chloride 103 Carbon Dioxide 21 L BUN 31 H Creatinine 2.16 H Estimated GFR 22.7 L BUN/Creatinine Ratio 14.4 Glucose 128 H Calcium 9.0 Urine Color Yellow Urine Appearance Slightly cloudy Urine pH 5.0 Ur Specific [place] 1.015 Urine Protein 1+ H Urine Glucose (UA) Negative Urine Ketones Negative Urine Occult Blood 2+ H Urine Nitrate Negative Urine Bilirubin Negative Urine Urobilinogen 0.2 Ur Leukocyte Esterase Trace H Urine RBC 0-1/hpf Urine WBC 5-10/hpf H Ur Squamous Epith Cells 10-30 /hpf H D Urine Bacteria Moderate (10-30) H Granular Casts 0-1/lpf Ur Culture Indicated? Cult not indicated SARS-CoV-2 (PCR) 06/29/21 06:45 WBC RBC Hgb Hct MCV MCH MCHC RDW Plt Count Neut % (Auto) Lymph % (Auto) [place] % (Auto) Eos % (Auto) Baso % (Auto) Neut # (Auto) Lymph # (Auto) [place] # (Auto) Eos # (Auto) Baso # (Auto) Sodium Potassium Chloride Carbon Dioxide BUN Creatinine Estimated GFR BUN/Creatinine Ratio Glucose Calcium Urine Color Urine Appearance Urine pH Ur Specific [place] Urine Protein Urine Glucose (UA) Urine Ketones Urine Occult Blood Urine Nitrate Urine Bilirubin Urine Urobilinogen Ur Leukocyte Esterase Urine RBC Urine WBC Ur Squamous Epith Cells Urine Bacteria Granular Casts Ur Culture Indicated? SARS-CoV-2 (PCR) Negative Assessment & Plan Assessment and plan (1) Right ureteral calculus: Status: Acute (2) Acute UTI: Status: Acute (3) Pyelonephritis of right kidney: Status: Acute Plan: 1. Schedule urgent CYSTOSCOPY/PLACEMENT RIGHT URETERAL STENT. Reviewed findings and discussed rationale and indications to proceed immediately to the operating room including acute kidney injury, UTI/right pyelonephritis, and intractable pain, nausea, and vomiting. The common side effects, precautions, perioperative limitations/restrictions, and reasonable expectations of outcomes and recovery were explained at length in detail the patient. She wishes to proceed. I further explained that following identification of the offending organism an adequate treatment, return visit to or for definitive laser lithotripsy would be indicated. Time Spent With Patient Critical Care time: I spent a total of [] minutes of critical care time on this patient's care today; this time is exclusive of procedural time.
--- NOTE | 2021-06-29 07:50 | PM.PREOP ---
Pre-operative Note Interval Note History & Physical reviewed/Exam performed by Physician: Yes Changes to H&P: No
[2021-06-29] MEDS: BELLADONNA/OPIUM SUPPOSITORIES 1 EACH PR (08:30)
--- NOTE | 2021-06-29 08:38 | PM.OP.1 ---
Operative Date/Time/Diagnoses Date of procedure: 06/29/21 Time of procedure: 08:39 Pre-op diagnosis: 1. Obstructing 4 mm right distal ureteral calculus. 2. UTI/right pyelonephritis. Post-op diagnosis: same Procedure & Clinicians Procedure: 1. Cystoscopy/right ureteral stone manipulation without removal. 2. Cystoscopy/placement right ureteral stent (6 Filipino by 22-32 cm multi-length). Same procedure as scheduled: Yes Indications: 1. Obstructing 4 mm right distal ureteral calculus. 2. UTI/right pyelonephritis. 3. Intractable right renal colic. Surgeon: Bhanu Medina Click Yes if Unassisted: Yes Anesthesia Type: General Operative Notes Findings: 1. Urethra-normal position and caliber. 2. Bladder-mild hyperemia and small globules of prominent material dependently in the floor. Normal bilateral ureteral orifice. 3. Right ureter-upon instrumentation of the right ureter with the hybrid wire and subsequently the stent there was copious, thick, purulent postobstructive efflux witnessed. Closure Type: not applicable Specimen(s): none sent Applied: other (Six Filipino by 22-32 cm multi-length stent) Estimated Blood Loss (mL): 0 Blood products transfused: none Procedure in detail: The patient was positioned supine administered general anesthesia. She was then repositioned in semi lithotomy and the lower abdomen, genitalia, and groin were then prepped and draped in sterile fashion. The 22 Filipino panendoscope was passed lower urinary tract with the findings as described above. Next, a 0.35 hybrid Glidewire was then advanced through the working port of the panendoscope and then advanced into the right collecting system under direct and fluoroscopic guidance. A 6 Filipino by 22-32 cm multi-length stent was then selected and advanced over the hybrid guidewire, again under direct and fluoroscopic guidance. NO RETRIEVAL LINE WAS LEFT ATTACHED. The bladder was then drained completely and all instrumentation was removed. The patient was then repositioned in supine, was awakened, was transferred to a gurney and transferred recovery in stable condition. Complications: none Post-operative Condition: stable Disposition: PACU Plan for aftercare: Discharge home.
[2021-06-29] MEDS: BENZOCAINE/MENTHOL 1 LOZ PKT 1 EACH PO (09:07)
--- NOTE | 2021-06-29 09:08 | SUR.PHASEI ---
Dr Vieira to bedside at 0900 Updated on patient with dry cough, no SOB, lungs clear, pt states she feels like her throat is just irritated. See new order for Cepacol lozenge.
--- NOTE | 2021-06-29 09:23 | SUR.PHASEI ---
0915 Patient transferred to OPD to Marilyn Gomes who was given SBAR report at bedside. Pt alert, oriented, continues to deny pain, nausea and SOB. Continues with small dry cough in throat. Pt tolerating lozenger and sips of water.
--- NOTE | 2021-06-29 09:27 | SUR.PHASEII ---
0915 Brought to Phase II to watch for any signs of sepsis before returning home. VSS at the moment
--- NOTE | 2021-06-29 12:59 | SUR.PHASEII ---
Dr Jama talked to patient and explaned to her about the antibiotics and what to watch for. Discharge instructions given and sent home via wheelchair
== END 2021-06-29 13:00 | disposition home or self-care (01) ==
LOC: ED 05:32 → AC 06:30
PROVIDERS: Admitting Provider Specialist; Emergency Provider Emergency Medicine; PCP Family Medicine; Referring Provider Emergency Medicine; Visit Provider Specialist
PROC: (CPT 52330; principal; 2021-06-29 07:30)
DX: N20.1 Calculus of ureter (principal); N39.0 Urinary tract infection, site not specified; N12 Tubulo-interstitial nephritis, not specified as acute or chronic; R11.2 Nausea with vomiting, unspecified; G47.33 Obstructive sleep apnea (adult) (pediatric); E03.9 Hypothyroidism, unspecified; I10 Essential (primary) hypertension; Z20.822 Contact with and (suspected) exposure to COVID-19
CPT/HCPCS: 52330; 52332; 36415; 74018; 76000; 76770; 80048; 81001; 85025; 87635; 96365; 96375; 99284; C9803; G0378; J0330; J0696; J1100; J1885; J2250; J2405; J2704; J2765; J3010

== ENCOUNTER → 2021-07-05 16:06 | Outpatient (CLI) | payer MEDICARE, OTHER, SELFPAY ==
[2021-07-05 17:40] LABS: Appearance Urine UA CLOUDY; Bilirubin Urine UA NEGATIVE (NEGATIVE); Color Urine UA YELLOW; Glucose Urine UA NEGATIVE (Negative); Ketones Urine UA NEGATIVE (NEGATIVE); Leukocyte Esterase Urine UA TRACE (NEGATIVE); Nitrite Urine UA NEGATIVE (Negative); Occult Blood Urine UA 3+ (Negative); Protein Urine UA 2+ (Negative); Urobilinogen Urine UA 0.2 E.U./dL (0.2)
[2021-07-05 18:00] LABS: RBC Urine >100/HPF (0-5/HPF); WBC Urine 1-5/HPF (0-5/HPF)
[2021-07-05 18:01] LABS: Squamous Epithelial Cell Urine 5-10 /HPF (0-5/HPF); Transitional Epi Cells Urine 1-5/HPF (0-5/HPF)
[2021-07-05 18:02] LABS: Bacteria Urine Few (2-10); Culture Indicated Urine Cult Not Indicated
[2021-07-05 18:10] LABS: BUN Creatinine Ratio 17.1 (6-22); Blood Urea Nitrogen 18 mg/dL (7-17); Calcium 9.4 mg/dL (8.4-10.2); Carbon Dioxide 26 mmol/L (22-32); Chloride 103 mmol/L (98-107); Estimated Glomerular Filt Rate 52.3 mL/min (>60); Glucose 97 mg/dL (80-110); HEMOLYSIS < 15 (0-50); Potassium 4.5 mmol/L (3.4-5.1); Sodium 138 mmol/L (137-145)
== END ==
PROVIDERS: PCP Family Medicine; Referring Provider Specialist; Visit Provider Family Medicine
DX: R30.0 Dysuria (principal); R35.0 Frequency of micturition; N12 Tubulo-interstitial nephritis, not specified as acute or chronic; N20.1 Calculus of ureter
CPT/HCPCS: 36415; 80048; 81001

== ENCOUNTER → 2021-07-17 15:08 | Outpatient (CLI) | payer MEDICARE, OTHER, SELFPAY ==
--- NOTE | 2021-07-17 15:11 | DI.RAD.S_ITS ---
PROCEDURE: XR KUB INDICATIONS: kidney stones/right ureteral stent TECHNIQUE: One view of the abdomen acquired. COMPARISON: [facility], CT, CT KUB, 06/30/2021, 21:50. [facility], CR, KUB XRAY (1 VIEW ABDOMEN), 06/20/2014, 15:04. FINDINGS: Surgical changes and devices: Right ureteral stent noted Bowel: Bowel gas pattern is normal. Soft tissues: Pelvic calcifications as before. These are better characterized on the recent CT from 06/30/21. Bones: No suspicious bony lesions. IMPRESSION: Status post placement of right ureteral stent in expected location. Previously seen tortuosity of the distal stent appears resolved on the current study. Dictated by: Moris Santana M.D. on 07/17/2021 at 16:58 Approved by: Moris Santana M.D. on 07/17/2021 at 17:00
== END ==
PROVIDERS: PCP Family Medicine; Referring Provider Specialist; Visit Provider Specialist
DX: N20.0 Calculus of kidney (principal); N20.1 Calculus of ureter; Z96.0 Presence of urogenital implants
CPT/HCPCS: 74018

== ENCOUNTER → 2021-07-27 14:53 | Outpatient (CLI) | payer MEDICARE, OTHER, SELFPAY ==
[2021-07-27 15:16] LABS: COVID19 -Nasal RAPID Negative (Negative)
== END ==
PROVIDERS: PCP Family Medicine; Visit Provider Specialist
DX: Z20.822 Contact with and (suspected) exposure to COVID-19 (principal)
CPT/HCPCS: 87635; C9803

== ENCOUNTER 2021-07-30 12:18 | Day surgery (SDC) | payer MEDICARE, OTHER, SELFPAY ==
[2021-07-26 12:21] VITALS: BMI 23.9
[2021-07-30] VITALS (7 sets, daily range): BP systolic 124–141; BP diastolic 74–84; PULSE 65–86; RESP 12–18; TEMP 36.5–36.6; O2SAT 96–98; BMI 23.9
[2021-07-30] MEDS: LACTATED RINGERS 1,000 ML 42 ML IV (13:24)
[2021-07-30] MEDS: CIPROFLOXACIN 400 MG/200 ML PIGGYBACK 200 MG IV (15:18)
--- NOTE | 2021-07-30 15:18 | PM.PREOP ---
Pre-operative Note Interval Note History & Physical reviewed/Exam performed by Physician: Yes Changes to H&P: No
--- NOTE | 2021-07-30 18:09 | SUR.OPER ---
Lithotomy on padded OR bed, head on pillow, arms secured on padded arm boards at <90 degrees abduction. Legs secured in padded yellow fins stirrups.
[2021-07-30] MEDS: BELLADONNA/OPIUM SUPPOSITORIES 1 EACH PR (18:10)
--- NOTE | 2021-07-30 18:17 | P.OP_ITS ---
Operative Date/Time/Diagnoses Date of procedure: 07/30/21 Time of procedure: 18:18 Pre-op diagnosis: 4 mm obstructing right distal ureteral calculus. History of Klebsiella pyelonephritis/sepsis. Retained right ureteral stent. Post-op diagnosis: same Procedure & Clinicians Procedure: 1. Right ureteroscopic laser lithotripsy. 2. Cystoscopy/removal right ureteral stent. Same procedure as scheduled: Yes Indications: 1. 4 mm obstructing right distal ureteral calculus. 2. History of Klebsiella pyelonephritis/sepsis. 3. Retained right ureteral stent. Surgeon: Bhanu Medina Click Yes if Unassisted: Yes Anesthesia Type: General Operative Notes Findings: 1. Urethra-normal caliber without obstruction or lesion. 2. Bladder-normal urothelium throughout normal left ureteral orifice. The right ureteral orifice as surrounding edema and erythema associated with an intact indwelling right ureteral stent. 3. Right ureter-index calculus located at the right ureterovesical junction. Morphology was faceted with sharp corners and edges. Closure Type: not applicable Specimen(s): none sent Estimated Blood Loss (mL): 0 Blood products transfused: none Procedure in detail: The patient was positioned supine and was administered general anesthesia. She was then repositioned in semilithotomy and the lower abdomen, genitalia, and groin were then prepped and draped in sterile fashion. The 22 Congolese panendoscope was then passed lower urinary tract and an alligator foreign body grasper was utilized to engage the distal tip of the right retained stent. He was then withdrawn to the perineum. A 0.35 hybrid guidewire was advanced through the lumen of the retained stent under fluoroscopic guidance. The retained stent was backloaded off the wire discarded. The wire was secured to the drape. Next, the semi rigid ureteral scope was passed into the bladder and then into the right distal ureter with the findings as described above. A 200 micron laser fiber was then selected. All operating room personnel and patient were fitted with laser safety eyewear. Laser lithotripsy was then commenced with subsequent excellent fragmentation of the calculus. The sand and small fragments were then cleared from the distal ureter using both hydrostatic and mechanical agitation. The ureteral scope was then removed and the safety guidewire was removed. The cystoscopic sheath was then reintroduced in the bladder with the obturator and the artery was then removed the bladder contents were drained. The patient was then repositioned in supine, was awakened, and then was transferred to [facility] for transport to PACU in stable condition. Complications: none Post-operative Condition: stable Disposition: PACU Plan for aftercare: Discharge home.
== END 2021-07-30 18:59 | disposition home or self-care (01) ==
PROVIDERS: PCP Family Medicine; Referring Provider Specialist; Visit Provider Specialist
PROC: (CPT 52356; principal; 2021-07-30 14:15)
DX: N20.1 Calculus of ureter (principal); Z87.440 Personal history of urinary (tract) infections; E03.9 Hypothyroidism, unspecified
CPT/HCPCS: 52356; 76000; J0744; J1100; J2405; J2704; J3010

== ENCOUNTER → 2021-10-05 11:39 | Outpatient (CLI) | payer MEDICARE, OTHER, SELFPAY ==
--- NOTE | 2021-10-05 11:42 | DI.RAD.S_ITS ---
PROCEDURE: XR KUB INDICATIONS: Right kidney stone TECHNIQUE: One view of the abdomen acquired. COMPARISON: [facility], CT, CT KUB, 06/30/2021, 21:50. [facility], CR, XR KUB, 07/17/2021, 15:04. FINDINGS: Surgical changes and devices: None. Bowel: Bowel gas pattern is normal. Soft tissues: No definite calcification is seen projecting over the bilateral kidneys. Calcifications in the pelvis do not appear significantly changed when compared to the prior exam. Visualized solid organ contours appear normal in size. Bones: Multilevel degenerative changes are seen in the spine. IMPRESSION: No definite renal calculus is seen radiographically. If symptoms persist, CT could be obtained for further evaluation. Dictated by: Bret Grullon M.D. on 10/05/2021 at 13:09 Approved by: Bret Grullon M.D. on 10/05/2021 at 13:12
== END ==
PROVIDERS: PCP Family Medicine; Referring Provider Specialist; Visit Provider Specialist
DX: N20.1 Calculus of ureter (principal)
CPT/HCPCS: 74018

== ENCOUNTER → 2021-10-06 12:57 | Outpatient (CLI) | payer MEDICARE, OTHER, SELFPAY ==
[2021-10-06 13:20] LABS: Add Manual Diff / Slide Review NO; Basophils Absolute Auto 100 /uL (0-100); Eosinophils Absolute Auto 100 /uL (0-450); Eosinophils Percent Auto 2.1 % (2-4); Hemoglobin 13.5 g/dL (12.0-16.0); Lymphocytes Absolute Auto 2000 /uL (1100-4500); Lymphocytes Percent Auto 31.9 % (25-40); Mean Corpuscular HGB Conc 33.7 % (30-36); Mean Corpuscular Hemoglobin 29.3 PG (26-34); Mean Corpuscular Volume 86.9 fL (80-100); Monocytes Absolute Auto 400 /uL (0-900); Monocytes Percent Auto 6.9 % (3-14); Neutrophils Absolute Auto 3700 /uL (1500-7000); Neutrophils Percent Auto 58.1 % (50-75); Platelet Count 223 X10^3/uL (150-400); Red Cell Distribution Width 13.7 % (11.6-14.8); White Blood Cell Count 6.4 X10^3/uL (4.5-11.0)
[2021-10-06 13:40] LABS: Uric Acid 3.7 mg/dL (2.5-6.2)
[2021-10-06 13:41] LABS: Alanine Aminotransferase 11 IU/L (<35); Albumin 4.3 g/dL (3.5-5.0); Albumin Globulin Ratio 1.4 (1.0-2.8); Alkaline Phosphatase 81 U/L (38-126); Aspartate Aminotransferase 20 IU/L (14-36); BUN Creatinine Ratio 23.6 (6-22); Bilirubin Total 0.5 mg/dL (0.2-1.3); Blood Urea Nitrogen 21 mg/dL (7-17); Calcium 9.4 mg/dL (8.4-10.2); Carbon Dioxide 28 mmol/L (22-32); Chloride 108 mmol/L (98-107); Estimated Glomerular Filt Rate > 60.0 mL/min (>60); Glucose 92 mg/dL (80-110); HEMOLYSIS < 15 (0-50); Potassium 4.1 mmol/L (3.4-5.1); Sodium 141 mmol/L (137-145); Total Protein 7.3 g/dL (6.3-8.2)
[2021-10-06 14:12] LABS: TSH w/ Reflex to FT4 0.73 uIU/mL (0.47-4.68)
[2021-10-07 09:42] LABS: Calcium 9.1 mg/dL (8.7-10.3); Parathyroid Hormone, Intact 56 pg/mL (15-65)
== END ==
PROVIDERS: Specialist; PCP Family Medicine; Referring Provider Family Medicine; Visit Provider Family Medicine
DX: E03.9 Hypothyroidism, unspecified (principal); I10 Essential (primary) hypertension; N20.0 Calculus of kidney; N20.1 Calculus of ureter; E78.5 Hyperlipidemia, unspecified; N12 Tubulo-interstitial nephritis, not specified as acute or chronic
CPT/HCPCS: 36415; 80053; 82310; 83970; 84443; 84550; 85025

== ENCOUNTER → 2021-12-11 07:10 | Outpatient (CLI) | payer MEDICARE, OTHER, SELFPAY ==
[2021-12-11 08:42] LABS: Cholesterol 195 mg/dL (140-199); HDL Cholesterol 54 mg/dL (40-60); LDL Cholesterol Calculated 130 mg/dL (<100); Triglycerides 55 mg/dL (35-150)
== END ==
PROVIDERS: PCP Family Medicine; Referring Provider Family Medicine; Visit Provider Family Medicine
DX: I10 Essential (primary) hypertension (principal); E03.9 Hypothyroidism, unspecified; E78.5 Hyperlipidemia, unspecified
CPT/HCPCS: 36415; 80061

== ENCOUNTER → 2022-06-17 10:03 | Outpatient (CLI) | payer MEDICARE, OTHER, SELFPAY ==
--- NOTE | 2022-06-17 10:06 | DI.RAD.S_ITS ---
PROCEDURE: XR CHEST 2V INDICATIONS: shortness of breath with exertion TECHNIQUE: 2 views of the chest were acquired. COMPARISON: [facility], CHEST 2 VIEW, 08/22/2016, 15:26. [facility], CHEST 2 VIEW, 10/30/2009, 14:36. FINDINGS: Surgical changes and devices: None. Lungs and pleura: Lungs are clear. No pleural effusions or pneumothorax. Mediastinum: Mediastinal contours are normal. Heart size is normal. Bones and chest wall: No suspicious bony abnormalities. Soft tissues appear unremarkable. IMPRESSION: No acute cardiopulmonary abnormality. Dictated by: Domo Briceño M.D. on 06/17/2022 at 9:31 Approved by: Domo Briceño M.D. on 06/17/2022 at 9:32
[2022-06-17 14:47] LABS: Add Manual Diff / Slide Review NO; Basophils Absolute Auto 0 /uL (0-100); Basophils Percent Auto 0.6 % (0-2); Eosinophils Absolute Auto 100 /uL (0-450); Eosinophils Percent Auto 1.9 % (2-4); Hematocrit 38.7 % (36-46); Hemoglobin 12.9 g/dL (12.0-16.0); Lymphocytes Absolute Auto 1700 /uL (1100-4500); Lymphocytes Percent Auto 27.4 % (25-40); Mean Corpuscular HGB Conc 33.4 % (30-36); Mean Corpuscular Hemoglobin 29.3 PG (26-34); Mean Corpuscular Volume 87.7 fL (80-100); Monocytes Absolute Auto 500 /uL (0-900); Monocytes Percent Auto 7.6 % (3-14); Neutrophils Absolute Auto 4000 /uL (1500-7000); Neutrophils Percent Auto 62.5 % (50-75); Platelet Count 222 X10^3/uL (150-400); Red Blood Cell Count 4.41 X10^6/uL (4.0-5.2); Red Cell Distribution Width 13.4 % (11.6-14.8); White Blood Cell Count 6.3 X10^3/uL (4.5-11.0)
[2022-06-17 14:56] LABS: D Dimer 553 ng/ml (<500)
[2022-06-17 15:13] LABS: Alanine Aminotransferase 12 IU/L (<35); Albumin Globulin Ratio 1.4 (1.0-2.8); Alkaline Phosphatase 68 U/L (38-126); Aspartate Aminotransferase 18 IU/L (14-36); BUN Creatinine Ratio 21.3 (6-22); Bilirubin Total 0.6 mg/dL (0.2-1.3); Blood Urea Nitrogen 17 mg/dL (7-17); Calcium 8.7 mg/dL (8.4-10.2); Carbon Dioxide 26 mmol/L (22-32); Chloride 108 mmol/L (98-107); Creatine Kinase 40 U/L (30-135); Estimated Glomerular Filt Rate > 60 mL/min (>60); Globulin 2.8 g/dL (1.7-4.1); Glucose 91 mg/dL (80-110); Potassium 4.3 mmol/L (3.4-5.1); Sodium 140 mmol/L (137-145); Total Protein 6.8 g/dL (6.3-8.2)
[2022-06-17 15:26] LABS: HEMOLYSIS 30 (0-50); Troponin I < 0.012 ng/mL (0.01-0.034)
[2022-06-17 15:31] LABS: Procalcitonin 0.04 ng/mL (<0.5)
== END ==
PROVIDERS: PCP Family Medicine; Referring Provider Student in an Organized Health Care Education/Training Program; Visit Provider Student in an Organized Health Care Education/Training Program
DX: R06.02 Shortness of breath (principal); R05.8 Other specified cough
CPT/HCPCS: 36415; 71046; 80053; 82550; 84145; 84484; 85025; 85379

== ENCOUNTER 2022-06-17 20:29 | Emergency (ER) | payer MEDICARE, OTHER, SELFPAY ==
[2022-06-17 20:32] VITALS: BP 161/89; PULSE 81; RESP 22; TEMP 37.1; O2SAT 97
--- NOTE | 2022-06-17 20:43 | DI.CT.S_ITS ---
PROCEDURE: CT ANGIO CHEST PE PROTOCOL INDICATIONS: covid with sob TECHNIQUE: After the administration of intravenous contrast, 2 mm thick sections acquired from the pulmonary apices to the posterior costophrenic angles. 3-dimensional maximum intensity projection (MIP) coronal and sagittal reformats were then acquired through the thorax. For radiation dose reduction, the following was used: automated exposure control, adjustment of mA and/or kV according to patient size. COMPARISON: [facility], CT, ABDOMEN/PELVIS WITH CONTRAST, 09/02/2017, 10:52. [facility], CT, CT KIDNEY URETER BLADDER (KUB), 06/27/2021, 8:06. [facility], CT, CT KUB, 06/30/2021, 21:50. [facility], CR, XR CHEST 2V, 06/17/2022, 10:15. FINDINGS: Image quality: Excellent. Pulmonary arteries: Pulmonary arteries are normal in size, and demonstrate no intraluminal filling defects to suggest central pulmonary embolism. Lower Neck: No lymphadenopathy by size criteria. Thyroid: Visualized thyroid demonstrates no discrete nodules. Axillae: No lymphadenopathy by size criteria. Chest Wall: Unremarkable. Bones: Visualized osseous structures demonstrate no suspicious lesions. Lungs and Airways: No acute consolidation. There is nodular thickening in the left lower lobe along the major fissure measuring up to 0.6 cm on series 5, image 153. Findings are similar in size compared to the prior studies. The trachea and central airways are patent. Pleura: No pneumothorax or pleural effusions. Heart: Heart size is normal. There is a minimal pericardial effusion. Thoracic Vessels: The thoracic aorta is normal in size. Mediastinum and Yocasta: No lymphadenopathy by size criteria. Esophagus: No wall thickening. No hiatal hernia. Abdomen: Visualized upper abdomen demonstrates a hypoattenuating lesion within the left hepatic lobe measuring approximately 2.6 x 2.5 cm which appears similar in size compared to the study of 09/02/2017 which demonstrated foci of discontinuous peripheral enhancement. The findings are suggestive of a cavernous hemangioma. An additional smaller focal hypodensity within the left hepatic lobe appears unchanged and likely represents a cyst. IMPRESSION: 1. No evidence of pulmonary embolism. 2. No acute airspace consolidation. 3. Minimal pericardial effusion. 4. Hypoattenuating lesion within the left hepatic lobe appears similar in size to the prior studies given differences in technique and likely represents a hemangioma. 5. Nodular thickening in the left lower lobe along the major fissure is suggestive of an intrapulmonary lymph node. Dictated by: Donato Hess M.D. on 06/17/2022 at 22:27 Approved by: Donato Hess M.D. on 06/17/2022 at 22:35
[2022-06-17 21:11] LABS: Creatine Kinase 36 U/L (30-135)
[2022-06-17 21:21] LABS: NT-proBNP (BNP-Adult 18+) 84 pg/mL (<125)
[2022-06-17 21:24] LABS: Troponin I < 0.012 ng/mL (0.01-0.034)
--- NOTE | 2022-06-17 23:16 | ED_ITS ---
HPI - SOB/Dyspnea General Chief Complaint: Shortness of Breath/Dyspnea Stated Complaint: SOB on exertion Time Seen by Provider: 06/17/22 20:42 Source: patient Mode of arrival: Ambulatory History of Present Illness HPI Narrative: Patient is a 66-year-old female history hypertension hypothyroid, presents today with increasing shortness of breath. Patient was diagnosed with COVID 4 weeks ago she has had ongoing cough and shortness of breath. Shortness of breath is definitely worse with exertion today seemed to be little bit worse. She reports some chest tightness. She was actually seen evaluated at walk-in clinic earlier today she had blood work D-dimer is elevated at 553, initially 80 was consulted not recommended to come to the ED at that time however patient came for further evaluation. She says that she has to sleep sitting up because she coughs at night. She denies any new fever or chills. She has a dry nonproductive cough. No known coronary artery disease. Related Data Home Medications Medication Instructions Recorded Confirmed ascorbate calcium (vitamin C) 500 500 mg PO DAILY 11/29/21 06/17/22 mg tablet [id number]-FOS-bromeln PO 11/29/21 06/17/22 lactobacillus combination no.9 PO 11/29/21 06/17/22 [Adult 50 Plus Probiotic] Previous Rx's Medication Instructions Recorded Resmed AirSense 10 CPAP #1 ea 02/26/19 bupropion HCl 150 mg tablet,12 hr 150 mg PO DAILY #90 tabs 12/13/21 sustained-release (Wellbutrin SR) estradiol 0.01% (0.1 mg/gram) 1 g vaginal 3 TIMES WEEK #42.5 12/13/21 vaginal cream (Estrace) grams levothyroxine 88 mcg tablet 88 mcg PO QAM #90 tabs 12/13/21 (Synthroid) lisinopril 20 mg tablet See Rx Instructions .Route 12/13/21 .COMPLEX #90 tabs nirmatrelvir 300 mg (150 mg See Rx Instructions PO .COMPLEX 05/24/22 x2)-ritonavir 100 mg tablet,dose #30 ea pack(EUA) (Paxlovid) benzonatate 100 mg capsule 100 mg PO TID PRN cough 7 days #21 06/17/22 caps Allergies Allergy/AdvReac Type Severity Reaction Status Date / Time carisoprodol [From SOMA] Allergy Severe Hives Verified 06/17/22 09:33 Sulfa (Sulfonamide Allergy Intermediate Confusion Verified 06/17/22 09:33 Antibiotics) [SULFA (SULFONAMIDE ANTIBIOTICS)] nitrofurantoin Allergy Unknown Verified 06/17/22 09:33 [NITROFURANTOIN] Review of Systems Review of Systems Narrative: GENERAL: Denies chills, fatigue, malaise, fever, sweats, travel HEENT: Denies sinus pain, ear pain, sore throat, difficulty swallowing, neck pain RESPIRATORY: See HPI CARDIOVASCULAR: Denies chest pain, palpitations, orthopnea, edema GASTROINTESTINAL: Denies nausea, vomiting, abdominal pain, diarrhea, constipation, melena. : Denies dysuria, frequency, incontinence, hematuria, urinary retention, flank pain. MUSCULOSKELETAL: Denies weakness, joint pain, or bony pain SKIN: No rash, no erythema, no pruritus NEUROLOGIC: Denies weakness, dizziness, headache, numbness, change in speech, confusion PSYCHIATRIC: No concerning psychosocial issues. 12 point review of systems is negative except for those stated above and HPI Patient History Medical History Diverticulosis History of UTI Hypothyroidism (11/02/13) Obstructive sleep apnea of adult Postmenopausal atrophic vaginitis Pyelonephritis of right kidney Right ureteral calculus Rosacea (11/20/15) Sleep apnea Surgical History Anesthesia History of bilateral salpingo-oophorectomy (BSO) (2012) History of lithotripsy (2012) Hx of cystoscopy (06/29/21) Status post surgery (07/17/10) Family History Brother Age: 70 Colon cancer Mother Cancer Pneumonia Ovarian cancer Father Lung cancer Colon cancer Alcoholism Grandfather [place] (myocardial infarction) Grandmother No problems noted. Sister Diabetes mellitus Family/Other Ovarian cancer Family/Other Heart disease Family/Other Heart disease Family/Other Heart disease Family/Other Heart disease Family/Other Heart disease Family/Other Heart disease Social History marital status: household members: spouse Smoking Status: Never smoker alcohol intake: current substance use type: does not use Smoking Status: Never smoker alcohol intake frequency: 0-2 drinks per day Substance Use Type: does not use Exam Initial Vital Signs Initial Vital Signs: Vital Signs Temperature 98.8 F 06/17/22 20:32 Pulse Rate 81 06/17/22 20:32 Respiratory Rate 22 06/17/22 20:32 Blood Pressure 161/89 H 06/17/22 20:32 Pulse Oximetry 97 06/17/22 20:32 Oxygen Delivery Method 06/17/22 20:32 GENERAL: Alert 66-year-old female sleeping in position without respiratory distress easily arousable and in no acute distress. HEENT: Head atraumatic,EOMI, pupils reactive, face symmetric, moist mucous membranes CARDIOVASCULAR: Regular rate and rhythm without murmurs, rubs or gallops. RESPIRATORY: Breath sounds equal bilaterally, no wheezes rales or rhonchi. ABDOMEN: Soft, nontender. Normoactive bowel sounds all 4 quadrants. No guarding or rebound. EXTREMITIES: Normal range of motion, no clubbing or edema. Neurovascularly intact NEUROLOGICAL: Alert and oriented x4.Normal gait and speech. SKIN: Warm, dry, no laceration, no petechiae, no rashes or lesions. Course Orders Ordered: ED Orders 06/17/22 20:43 CT angio chest PE protocol Stat 06/17/22 20:50 BNP [NT-proBNP (BNP-Adult 18+)] Stat Troponin & CK Cardiac Panel Stat 06/17/22 23:50 EKG-12 Lead Stat Discontinued Medications Albuterol (Albuterol Hfa Prepack) 1 box [facility] Stop: 06/17/22 23:24 Last Admin: 06/18/22 00:41 Dose: 1 box Documented By: ZAC Vital Signs Vital signs: Vital Signs - 8 hr 06/18/22 00:41 06/17/22 23:53 06/18/22 00:00 Pulse Rate 66 75 Respiratory Rate 20 Blood Pressure Pulse Oximetry 97 98 97 Oxygen Delivery Method Room Air Oxygen Flow Rate 06/18/22 00:30 06/18/22 00:57 06/18/22 00:57 Pulse Rate 63 68 Respiratory Rate 19 14 Blood Pressure 132/79 Pulse Oximetry 97 97 Oxygen Delivery Method Oxygen Flow Rate 0 MDM - SOB/Dyspnea Differential Diagnosis Differential diagnosis: Likely acute exacerbation of chronic obstructive airways disease, congestive heart failure, community acquired pneumonia, asthma with exacerbation, pulmonary embolism and other (Coronary artery disease, long covid) Lab Data Labs: Lab Results 06/17/22 06/17/22 Range/Units 20:50 20:50 Total Creatine Kinase 36 (30-135) U/L CK-MB (CK-2) TNP CK-MB (CK-2) Rel Index TNP Troponin I < 0.012 (0.01-0.034) ng/mL NT-Pro-B Natriuret Pep 84 (<125) pg/mL Imaging Data CT scan - chest: Radiologist's Impression: CT Scan Report Signed Patient: Jerrell Cantu MR#: [id number] : 1955 Acct:[id number] Age/Sex: 66 / F Date of Service: 06/17/22 Loc: ED Accession Number: [id number] ?? Procedure: CT angio chest PE protocol Ordering Provider: Nadine Espinosa D.O. PROCEDURE:? CT ANGIO CHEST PE PROTOCOL ? INDICATIONS:? covid with sob ? TECHNIQUE:? After the administration of intravenous contrast, 2 mm thick sections acquired from the pulmonary apices to the posterior costophrenic angles.? 3-dimensional maximum intensity projection (MIP) coronal and sagittal reformats were then acquired through the thorax.? For radiation dose reduction, the following was used:? automated exposure control, adjustment of mA and/or kV according to patient size.? ? COMPARISON:? [facility], CT, ABDOMEN/PELVIS WITH CONTRAST, 09/02/2017, 10:52.? [facility], CT, CT KIDNEY URETER BLADDER (KUB), 06/27/2021, 8:06.? [facility], CT, CT KUB, 06/30/2021, 21:50.? [facility], CR, XR CHEST 2V, 06/17/2022, 10:15. ? FINDINGS:? Image quality:? Excellent.? ? Pulmonary arteries:? Pulmonary arteries are normal in size, and demonstrate no intraluminal filling defects to suggest central pulmonary embolism.? ? Lower Neck: No lymphadenopathy by size criteria. Thyroid:? Visualized thyroid demonstrates no discrete nodules. Axillae: No lymphadenopathy by size criteria. Chest Wall:? Unremarkable.? Bones: Visualized osseous structures demonstrate no suspicious lesions. ? Lungs and Airways:? No acute consolidation.? There is nodular thickening in the left lower lobe along the major fissure measuring up to 0.6 cm on series 5, image 153.? Findings are similar in size compared to the prior studies.? The trachea and central airways are patent. Pleura: No pneumothorax or pleural effusions.? ? Heart: Heart size is normal.? There is a minimal pericardial effusion. Thoracic Vessels: The thoracic aorta is normal in size.? Mediastinum and Yocasta: No lymphadenopathy by size criteria. Esophagus: No wall thickening. No hiatal hernia. ? Abdomen:? Visualized upper abdomen demonstrates a hypoattenuating lesion within the left hepatic lobe measuring approximately 2.6 x 2.5 cm which appears similar in size compared to the study of 09/02/2017 which demonstrated foci of discontinuous peripheral enhancement.? The findings are suggestive of a cavernous hemangioma.? An additional smaller focal hypodensity within the left hepatic lobe appears unchanged and likely represents a cyst. ? IMPRESSION:? ? 1. No evidence of pulmonary embolism. ? 2. No acute airspace consolidation. ? 3. Minimal pericardial effusion. ? 4. Hypoattenuating lesion within the left hepatic lobe appears similar in size to the prior studies given differences in technique and likely represents a hemangioma. ? 5. Nodular thickening in the left lower lobe along the major fissure is suggestive of an intrapulmonary lymph node.? ? ? Dictated by: Donato Hess M.D. on 06/17/2022 at 22:27 ? ? Approved by: Donato Hess M.D. on 06/17/2022 at 22:35 ? ECG Data Interpretation: Normal sinus rhythm rate 62 FL interval 176 QRS [address] changes no T- wave inversion MDM Narrative Medical decision making narrative: Patient had blood work done earlier today. Repeat troponin and BNP added. They are within normal limits. CT angio did not show any pulmonary embolism. Possible reactive airway disease. She is given inhaler and spacer teaching in the emergency department. The does not have risk factors for coronary artery disease she has a low heart score. His EKG is within normal limits. No evidence of congestive heart failure pulmonary embolism. Possible long COVID syndrome. She overall appears comfort vitals are stable. Discharge Plan Departure Patient Disposition: Home Clinical Impression: Reactive airway disease Instructions: DI for Viral Upper Respiratory Infection -- Adult Activity Restrictions/Additional Instructions: *You have been diagnosed with reactive airway disease, possible long covid *What to do: At this time he do not have a pulmonary embolism. Blood work is overall reassuring. Possible long COVID symptoms. Hopefully the inhaler helps *Continue to take medications as directed Albuterol 1-2 puffs every 4 hours if needed for shortness of breath or cough especially 30 minutes before activity *Follow up with your primary care provider in 2-3 days or call [phone] *Return to ER if you should have increasing chest pain shortness of breath fever chills or any new, worsening or concerning symptoms Prescriptions: No Action levothyroxine [Synthroid] 88 mcg tablet 88 mcg PO QAM Qty: 90 3RF Rx Instructions: please complete ordered lab work lisinopril 20 mg tablet See Rx Instructions .ROUTE .COMPLEX Qty: 90 3RF Dose Instruction: TAKE 1 TABLET BY MOUTH DAILY Rx Instructions: TAKE 1 TABLET BY MOUTH DAILY bupropion HCl [Wellbutrin SR] 150 mg tablet sustained-release 12 hr 150 mg PO DAILY Qty: 90 3RF estradiol [Estrace] 0.01 % (0.1 mg/gram) cream 1 g Vaginal 3 TIMES WEEK Qty: 42.5 3RF benzonatate 100 mg capsule 100 mg PO TID PRN (Reason: cough) 7 Days Qty: 21 0RF (DME) Resmed AirSense 10 CPAP Qty: 1 0RF Dose Instruction: As directed Rx Instructions: As directed with air pressure auto set 4-12 Paxlovid (EUA) 300 mg (150 mg x 2)-100 mg tablets,dose pack See Rx Instructions PO .COMPLEX Qty: 30 0RF Rx Instructions: take TWO 150 mg tablets of nirmatrelvir with ONE 100 mg tablet of ritonavir twice daily for 5 days PO lactobacillus combination no.9 [Adult 50 Plus Probiotic] PO hqia-ivuY-gzvzcah-FOS-bromeln PO ascorbate calcium (vitamin C) 500 mg tablet 500 mg PO DAILY Referrals: Bertrand Rocha MD [Primary Care Provider] - Visit Report Forms: Patient Portal/API
[2022-06-17 23:53] VITALS: PULSE 66; O2SAT 98
[2022-06-18] VITALS: PULSE 75; RESP 20; O2SAT 97
[2022-06-18 00:30] VITALS: PULSE 63; RESP 19; O2SAT 97
[2022-06-18 00:41] VITALS: O2SAT 97
[2022-06-18] MEDS: ALBUTEROL HFA PREPACK 1 BOX MISC (00:41)
--- NOTE | 2022-06-18 00:51 | PC.NURSE ---
Pt reports COVID + on 05/19/22 and not getting better.
[2022-06-18 00:57] VITALS: BP 132/79; PULSE 68; RESP 14; O2SAT 97
== END 2022-06-18 01:03 | disposition home or self-care (01) ==
PROVIDERS: Emergency Provider Emergency Medicine; PCP Family Medicine
DX: J45.909 Unspecified asthma, uncomplicated (principal); R07.9 Chest pain, unspecified; Z86.16 Personal history of COVID-19; R06.02 Shortness of breath; R05.8 Other specified cough
CPT/HCPCS: 36415; 71046; 71275; 80053; 82550; 83880; 84145; 84484; 85025; 85379; 93005; 99281; 99284; Q9967

== ENCOUNTER → 2022-08-26 14:57 | Outpatient (CLI) | payer MEDICARE, OTHER, SELFPAY ==
--- NOTE | 2022-08-26 14:58 | DI.RAD.S_ITS ---
PROCEDURE: XR LUMBAR SPINE 2-3V INDICATIONS: low back pain TECHNIQUE: 3 views of the lumbar spine were acquired. COMPARISON: [facility], CT, CT KUB, 06/30/2021, 21:50. FINDINGS: Bones: 5 esi-vlz-cpyczyr vertebrae are present. There is trace levoconvex curvature of the lower lumbar spine. No vertebral body compression fractures. No suspicious bony lesions. Multilevel disc space narrowing degenerative endplate changes are present. There is multilevel facet hypertrophy. Soft tissues: Overlying bowel gas pattern is normal. No suspicious soft tissue calcifications. IMPRESSION: Moderate multilevel spondylosis. No acute osseous abnormality. MRI could be performed for further evaluation if indicated clinically. Approved by: Bret Grullon M.D. on 08/26/2022 at 21:07
== END ==
PROVIDERS: PCP Family Medicine; Referring Provider Family Medicine; Visit Provider Family Medicine
DX: M54.50 Low back pain, unspecified (principal); M47.816 Spondylosis without myelopathy or radiculopathy, lumbar region
CPT/HCPCS: 72100

== ENCOUNTER → 2023-01-04 08:10 | Outpatient (CLI) | payer MEDICARE, OTHER, SELFPAY ==
[2023-01-04 09:25] LABS: Add Manual Diff / Slide Review NO; Basophils Absolute Auto 0 /uL (0-100); Basophils Percent Auto 0.7 % (0-2); Eosinophils Absolute Auto 100 /uL (0-450); Eosinophils Percent Auto 2.3 % (2-4); Hematocrit 38.5 % (36-46); Lymphocytes Absolute Auto 1800 /uL (1100-4500); Lymphocytes Percent Auto 34.8 % (25-40); Mean Corpuscular HGB Conc 33.7 % (30-36); Mean Corpuscular Hemoglobin 29.8 PG (26-34); Mean Corpuscular Volume 88.2 fL (80-100); Monocytes Absolute Auto 400 /uL (0-900); Monocytes Percent Auto 7.5 % (3-14); Neutrophils Absolute Auto 2900 /uL (1500-7000); Neutrophils Percent Auto 54.7 % (50-75); Platelet Count 198 X10^3/uL (150-400); Red Blood Cell Count 4.36 X10^6/uL (4.0-5.2); White Blood Cell Count 5.2 X10^3/uL (4.5-11.0)
[2023-01-04 09:31] LABS: Alanine Aminotransferase 15 IU/L (<35); Albumin 3.9 g/dL (3.5-5.0); Albumin Globulin Ratio 1.4 (1.0-2.8); Alkaline Phosphatase 68 U/L (38-126); Aspartate Aminotransferase 21 IU/L (14-36); BUN Creatinine Ratio 23.2 (6-22); Bilirubin Total 0.9 mg/dL (0.2-1.3); Blood Urea Nitrogen 19 mg/dL (7-17); Calcium 8.5 mg/dL (8.4-10.2); Carbon Dioxide 26 mmol/L (22-32); Chloride 109 mmol/L (98-107); Cholesterol 211 mg/dL (140-199); Estimated Glomerular Filt Rate > 60 mL/min (>60); Globulin 2.7 g/dL (1.7-4.1); Glucose 95 mg/dL (80-110); HDL Cholesterol 49 mg/dL (40-60); HEMOLYSIS < 15 (0-50); LDL Cholesterol Calculated 145 mg/dL (<100); Potassium 4.1 mmol/L (3.4-5.1); Sodium 141 mmol/L (137-145); Total Protein 6.6 g/dL (6.3-8.2); Triglycerides 83 mg/dL (35-150)
[2023-01-04 09:58] LABS: TSH w/ Reflex to FT4 1.52 uIU/mL (0.47-4.68)
== END ==
PROVIDERS: PCP Family Medicine; Referring Provider Family Medicine; Visit Provider Family Medicine
DX: E03.9 Hypothyroidism, unspecified (principal); I10 Essential (primary) hypertension
CPT/HCPCS: 36415; 80053; 80061; 84443; 85025

== ENCOUNTER → 2023-03-12 10:19 | Outpatient (CLI) | payer MEDICARE, OTHER, SELFPAY ==
--- NOTE | 2023-03-12 10:21 | DI.RAD.S_ITS ---
PROCEDURE: XR DEXA AXIAL SKELETON INDICATIONS: osteopenia, postmenopausal female COMPARISON: [facility], CR, XR DEXA AXIAL SKELETON, 09/21/2020, 9:51. [facility], CR, XR DEXA AXIAL SKELETON, 03/10/2018, 10:57. FINDINGS: This blank DEXA report has been sent in error by the PACS system. The correct and complete report will be forthcoming in 1-2 days. Thank you for your patience and understanding. Dictated by: William Everett M.D. on 03/12/2023 at 11:59 Approved by: William Everett M.D. on 03/12/2023 at 11:59
--- NOTE | 2023-03-12 10:30 | DI.DEXA.S_ITS ---
Bone Density Report Name: MASON VYAS Age: 67 Sex: Female Ethnicity: White Date of : 1955 Indication: postmenopausal; screening for osteoporosis; Referring Provider: LISA HERBERT Study: Bone densitometry was performed. Exam Date: March 12, 2023 Accession number: [id number] Bone Density: Region BMD T-score Z-score Classification AP Spine(L1-L4) 0.937 -1.0 1.1 Normal Femoral Neck (Left) 0.671 -1.6 0.2 Osteopenia Total Hip (Left) 0.862 -0.7 0.8 Normal Femoral Neck (Right) 0.651 -1.8 0.0 Osteopenia Total Hip (Right) 0.851 -0.7 0.7 Normal Total Hip Mean 0.856 -0.7 0.8 Normal World Health Organization criteria for BMD impression classify patients as: Normal (T-score at or above -1.0), Osteopenia (T-score between -1.0 and -2.5), or Osteoporosis (T-score at or below -2.5). 10-year Fracture Risk(1): Major Osteoporotic Fracture 11% Hip Fracture 1.7% Reported Risk Factors: [place] (), Neck BMD=0.651, BMI=25.2 (1) FRAX(R) Version 3.08. Fracture probability calculated for an untreated patient. Fracture probability may be lower if the patient has received treatment. Previous Exams: -- Region Exam Age BMD T-score BMD Change BMD Change Date g/cm2 vs Baseline vs Previous -- AP Spine (L1-L4) 03/12/2023 67 0.937 -1.0 -0.045 (-4.6%)# -0.045 (-4.6%)# 09/21/2020 65 0.981 -0.6 Total Hip(Left) 03/12/2023 67 0.862 -0.7 0.007 (0.8%)# 0.007 (0.8%)# 09/21/2020 65 0.855 -0.7 Total Hip(Right) 03/12/2023 67 0.851 -0.7 -0.006 (-0.7%)# -0.006 (-0.7%)# 09/21/2020 65 0.857 -0.7 -- *Denotes significance at 95% confidence level, LSC for AP Spine = 0.022 g/cm2, LSC for Total Hip = 0.027 g/cm2 # Denotes dissimilar scan types or analysis methods Impression: The patient has low bone mass, based on the Right Femoral Neck T-score. The patient has an estimated ten-year risk of hip fracture of 1.7% and an estimated ten-year risk of major fracture of 11%, based on the WHO FRAX algorithm. No significant bone loss was observed. Discussion: BONE DENSITY IS LOW AT ONE OR MORE SKELETAL SITES. This patient's lowest T-score is low at one or more skeletal sites. It meets the World Health Organization's (WHO) criteria for ?low bone mass? (T-score between -1.0 and -2.5). The patient's 10-year risk of fracture as calculated by FRAX is less than the threshold where pharmacological therapy is recommended by the National Osteoporosis Foundation (NOF). However, all treatment decisions require clinical judgment and consideration of individual patient factors, including patient preferences, comorbidities, previous drug use, risk factors not captured in the FRAX model (e.g., frailty, falls, vitamin D deficiency, increased bone turnover, interval significant decline in bone density) and possible under or overestimation of fracture risk by FRAX. The patient should follow a healthful lifestyle (good nutrition with adequate calcium and vitamin D, and appropriate weight-bearing exercise). Follow-Up: Consider repeating this study in 2 to 3 years to reassess this patient's status, or sooner if there is some new clinical indication. Reported by: RICKEY MAY M.D. on 03/12/2023 10:45:00 AM.
== END ==
PROVIDERS: PCP Family Medicine; Referring Provider Family Medicine; Visit Provider Family Medicine
DX: Z78.0 Asymptomatic menopausal state (principal); Z13.820 Encounter for screening for osteoporosis; M85.851 Other specified disorders of bone density and structure, right thigh
CPT/HCPCS: 77080

== ENCOUNTER → 2023-04-17 12:52 | Outpatient (CLI) | payer MEDICARE, OTHER, SELFPAY ==
--- NOTE | 2023-04-17 12:54 | DI.RAD.S_ITS ---
PROCEDURE: XR HIP W PEL IF DONE RT 2V INDICATIONS: rt hip pain TECHNIQUE: AP pelvis with lateral view(s) of the right hip(s). COMPARISON: [facility], CR, XR KUB, 10/05/2021, 12:52. [facility], CT, CT KUB, 06/30/2021, 21:50. FINDINGS: Bones: No fractures or dislocations. Mild joint space narrowing. Pelvic ring appears intact. No suspicious bony lesions. Small focus of chondroid matrix in the proximal right femur is unchanged since at least 2020. This could represent a small enchondroma. Degenerative change at L4-L5. Soft tissues: The visualized bowel gas pattern is normal. No suspicious soft tissue calcifications. IMPRESSION: Mild bilateral hip DJD. Dictated by: Domo Briceño M.D. on 04/17/2023 at 14:12 Approved by: Domo Briceño M.D. on 04/17/2023 at 14:14
== END ==
PROVIDERS: PCP Family Medicine; Referring Provider Family Medicine; Visit Provider Family Medicine
DX: G89.29 Other chronic pain; M25.551 Pain in right hip; M16.0 Bilateral primary osteoarthritis of hip
CPT/HCPCS: 73502

== ENCOUNTER → 2024-05-10 15:34 | Outpatient (CLI) | payer MEDICARE, OTHER, SELFPAY | PROVIDERS: PCP Family Medicine; Visit Provider Physician Assistant Surgical | DX: R05.1 Acute cough (principal) | CPT/HCPCS: 0241U; 87070 ==

== ENCOUNTER → 2024-05-10 15:49 | Outpatient (CLI) | payer MEDICARE, OTHER, SELFPAY ==
--- NOTE | 2024-05-10 15:51 | DI.RAD.S_ITS ---
PROCEDURE: XR CHEST 2V INDICATIONS: [place], cough, chest congestion TECHNIQUE: 2 views of the chest were acquired. COMPARISON: [facility], [place], XR CHEST 2V, 06/17/2022, 10:15. [facility], [place], CHEST 2 VIEW, 08/22/2016, 15:26. FINDINGS: Surgical changes and devices: None. Lungs and pleura: Lungs are clear. No pleural effusions or pneumothorax. Mediastinum: Mediastinal contours are normal. Heart size is normal. Bones and chest wall: No suspicious bony abnormalities. Soft tissues appear unremarkable. IMPRESSION: No acute cardiopulmonary abnormality is seen. Dictated by: William Everett M.D. on 05/10/2024 at 16:06 Approved by: William Everett M.D. on 05/10/2024 at 16:06
== END ==
LOC: RAD 15:50
PROVIDERS: PCP Family Medicine; Referring Provider Physician Assistant Surgical; Visit Provider Physician Assistant Surgical
DX: R09.89 Other specified symptoms and signs involving the circulatory and respiratory systems (principal); R06.09 Other forms of dyspnea; R05.1 Acute cough
CPT/HCPCS: 0241U; 71046; 87070

== ENCOUNTER → 2024-05-29 09:08 | Outpatient (CLI) | payer MEDICARE, OTHER, SELFPAY ==
[2024-05-29 10:21] LABS: Add Manual Diff / Slide Review NO; Basophils Absolute Auto 0 /uL (0-100); Basophils Percent Auto 0.6 % (0-2); Eosinophils Absolute Auto 200 /uL (0-450); Eosinophils Percent Auto 2.7 % (2-4); Hematocrit 41.4 % (36-46); Hemoglobin 13.9 g/dL (12.0-16.0); Lymphocytes Absolute Auto 1700 /uL (1100-4500); Lymphocytes Percent Auto 29.6 % (25-40); Mean Corpuscular HGB Conc 33.6 % (30-36); Mean Corpuscular Hemoglobin 30.6 PG (26-34); Monocytes Absolute Auto 400 /uL (0-900); Monocytes Percent Auto 6.8 % (3-14); Neutrophils Absolute Auto 3500 /uL (1500-7000); Neutrophils Percent Auto 60.3 % (50-75); Platelet Count 212 X10^3/uL (150-400); Red Blood Cell Count 4.55 X10^6/uL (4.0-5.2); Red Cell Distribution Width 13.3 % (11.6-14.8); White Blood Cell Count 5.8 X10^3/uL (4.5-11.0)
[2024-05-29 13:04] LABS: Cholesterol 225 mg/dL (140-199); HDL Cholesterol 55 mg/dL (40-60); LDL Cholesterol Calculated 151 mg/dL (<100); Triglycerides 96 mg/dL (35-150)
[2024-05-29 13:25] LABS: TSH w/ Reflex to FT4 4.08 uIU/mL (0.47-4.68)
[2024-06-01 09:33] LABS: Alanine Aminotransferase 11 IU/L (<35); Albumin 3.7 g/dL (3.5-5.0); Albumin Globulin Ratio 1.3 (1.0-2.8); Alkaline Phosphatase 70 U/L (38-126); Aspartate Aminotransferase 18 IU/L (14-36); Bilirubin Total 0.7 mg/dL (0.2-1.3); Blood Urea Nitrogen 18 mg/dL (7-17); Carbon Dioxide 24 mmol/L (22-32); Chloride 107 mmol/L (98-107); Estimated Glomerular Filt Rate > 60 mL/min (>60); Globulin 2.8 g/dL (1.7-4.1); Glucose 91 mg/dL (80-110); HEMOLYSIS < 15 (0-50); Potassium 4.4 mmol/L (3.4-5.1); Sodium 138 mmol/L (137-145); Total Protein 6.5 g/dL (6.3-8.2)
[2024-06-24 17:24] LABS: Appearance Urine UA CLEAR; Bilirubin Urine UA NEGATIVE (NEGATIVE); Color Urine UA YELLOW; Glucose Urine UA NEGATIVE (Negative); Ketones Urine UA TRACE (NEGATIVE); Leukocyte Esterase Urine UA NEGATIVE (NEGATIVE); Nitrite Urine UA NEGATIVE (Negative); Occult Blood Urine UA TRACE-INTACT (Negative); Protein Urine UA NEGATIVE (Negative); Specific Gravity Urine UA >=1.030 (1.000-1.035); Urobilinogen Urine UA 0.2 E.U./dL (0.2)
[2024-06-24 17:39] LABS: Urine Volume 10mL (spun); pH Urine UA 5.5 (4.5-8.0)
[2024-06-24 17:40] LABS: Bacteria Urine Few (2-10); Calcium Oxalate Crystals Urine Few; Culture Indicated Urine Cult Not Indicated; RBC Urine 0-1/HPF (0-5/HPF); Squamous Epithelial Cell Urine 0-1 /HPF (0-5/HPF); WBC Urine 0-1/HPF (0-5/HPF)
== END ==
PROVIDERS: Physician Assistant; PCP Family Medicine; Referring Provider Family Medicine; Visit Provider Family Medicine
DX: G47.33 Obstructive sleep apnea (adult) (pediatric) (principal); I10 Essential (primary) hypertension; K57.90 Diverticulosis of intestine, part unspecified, without perforation or abscess without bleeding; E03.9 Hypothyroidism, unspecified; G25.81 Restless legs syndrome; F33.9 Major depressive disorder, recurrent, unspecified
CPT/HCPCS: 36415; 80053; 80061; 81001; 84443; 85025

== ENCOUNTER → 2024-07-02 06:52 | Outpatient (CLI) | payer MEDICARE, OTHER, SELFPAY ==
--- NOTE | 2024-07-02 06:53 | DI.US.S_ITS ---
PROCEDURE: US RENAL COMPLETE INDICATIONS: RIGHT FLANK PAIN X 2 MONTHS TECHNIQUE: Real-time scanning was performed of the kidneys and bladder, with image documentation. COMPARISON: [facility], , RENAL COMPLETE, 06/29/2021, 6:59. FINDINGS: Kidneys: Kidneys are normal in size. Right kidney measures 11.6 cm long; left kidney measures 11.1 cm long. Right renal cortical thickness is 1.3 cm; left renal cortical thickness is 1.3 cm. Renal cortical echotexture is normal. No hydronephrosis. 7 mm nonobstructing left renal stone. Bladder: Pre-void bladder volume is 133 mL. Post-void residual is 26 mL. Pre-void images demonstrate no intraluminal masses or stones. On pre-void images, bilateral ureteral jets are noted with color Doppler interrogation. (Of note, ureteral jets may not be detectable in up to 25% of cases due to insufficient differences in specific gravity between ureteral and bladder urine). Miscellaneous: No free pelvic fluid. IMPRESSION: 7 mm nonobstructing left renal stone; otherwise unremarkable sonographic appearance of the kidneys and no hydronephrosis. Dictated by: Srikanth Henry [facility] Interpreted: Maria G Almodovar MD on 07/02/2024 at 12:26 Transcribed by: VASILIY on 07/02/2024 at 12:27 Approved by: Maria G Almodovar MD, PhD on 07/07/2024 at 11:19
== END ==
LOC: US 06:52
PROVIDERS: PCP Family Medicine; Referring Provider Physician Assistant; Visit Provider Physician Assistant
DX: N20.0 Calculus of kidney (principal); R10.9 Unspecified abdominal pain; Z87.448 Personal history of other diseases of urinary system; Z87.442 Personal history of urinary calculi
CPT/HCPCS: 76770

== ENCOUNTER → 2024-07-12 08:24 | Outpatient (CLI) | payer MEDICARE, OTHER, SELFPAY ==
--- NOTE | 2024-07-12 08:25 | DI.US.S_ITS ---
PROCEDURE: US ABDOMEN LIMITED INDICATIONS: RUQ PAIN TECHNIQUE: Real-time focused scanning was performed of the abdomen, with image documentation. COMPARISON: [facility], US, ABDOMEN COMPLETE, 07/07/2017, 12:24. [facility], CT, CT KUB, 06/30/2021, 21:50. [facility], US, US RENAL COMPLETE, 07/02/2024, 6:59. FINDINGS: The liver demonstrates prominent size. Normal overall liver echogenicity can be seen. There are nonvascular hyperechoic lesions again seen within the liver, including a 2 cm focus within the right lobe of the liver and a 2.8 cm focus within the left lobe of the liver. A 1 cm left liver simple cyst can be seen No findings of gallstones or sludge are seen. The gallbladder wall is not thickened, measuring 3 mm or less. No specific pericholecystic fluid is seen. The sonographic Carvajal sign is negative. There is no biliary dilatation, the common bile duct measures 4-5 mm. No significant pancreatic abnormality is seen on these images. IMPRESSION: The gallbladder demonstrates a normal sonographic appearance. No biliary dilatation is seen. Enlarged liver with apparent liver hemangiomas, which appear similar to 2017. Dictated by: Damien Katz M.D. on 07/12/2024 at 12:46 Approved by: Damien Katz M.D. on 07/12/2024 at 12:48
== END ==
PROVIDERS: PCP Family Medicine; Referring Provider Family Medicine; Visit Provider Family Medicine
DX: K76.89 Other specified diseases of liver (principal); R10.11 Right upper quadrant pain; R16.0 Hepatomegaly, not elsewhere classified
CPT/HCPCS: 76705

== ENCOUNTER 2024-09-11 11:05 | Observation (INO) | payer MEDICARE, OTHER, SELFPAY ==
[2024-09-11 11:10] VITALS: BP 133/80; PULSE 82; RESP 17; TEMP 36.8; O2SAT 96; BMI 24.8
--- NOTE | 2024-09-11 11:25 | ED.NAVMDI ---
HPI - Nausea/Vomiting/Diarrhea General Chief complaint: Nausea/Vomiting/Diarrhea Stated complaint: dehydration via diverticulitis Time Seen by Provider: 09/11/24 11:10 Source: patient Mode of arrival: Ambulatory History of Present Illness HPI Narrative: 69-year-old female presents stating that her diverticulitis has caused her to become dehydrated. 5 days ago patient states that she got food poisoning from a restaurant in [facility]. Since then she has had lower abdominal cramping and nausea. She states that she has a standing order for Augmentin for diverticulitis from her primary care doctor. She started taking Augmentin 2 days ago thinking that her diverticulitis has flared up. States that she feels generally weak and like she was becoming dehydrated. She was not had very much p.o. fluid intake because any time she tries to eat or drink something it causes her intestines to cramp. Related Data Home Medications Medication Instructions Recorded Confirmed ascorbate calcium (vitamin C) 500 500 mg PO DAILY 11/29/21 08/30/24 mg tablet [id number]-FOS-bromeln PO 11/29/21 08/30/24 lactobacillus combination no.9 PO 11/29/21 08/30/24 [Adult 50 Plus Probiotic] iron sucrose 50 mg iron/2.5 mL 100 mg IV 3XW 01/07/24 08/30/24 intravenous solution (Venofer) lisinopril 40 mg tablet 20 mg PO DAILY 08/30/24 08/30/24 Previous Rx's Medication Instructions Recorded Resmed AirSense 10 CPAP #1 ea 02/26/19 estradiol 0.01% (0.1 mg/gram) 1 g vaginal 3XW #42.5 grams 01/13/24 vaginal cream bupropion HCl 200 mg tablet,12 hr 200 mg PO DAILY #90 tabs 04/05/24 sustained-release levothyroxine 88 mcg tablet 88 mcg PO QAM #90 tabs 07/23/24 (Synthroid) amlodipine 2.5 mg tablet 2.5 mg PO DAILY #30 tabs 09/02/24 Allergies Allergy/AdvReac Type Severity Reaction Status Date / Time carisoprodol [From SOMA] Allergy Severe Hives Verified 09/11/24 11:10 Sulfa (Sulfonamide Allergy Intermediate Confusion Verified 09/11/24 11:10 Antibiotics) [SULFA (SULFONAMIDE ANTIBIOTICS)] nitrofurantoin Allergy Unknown Verified 09/11/24 11:10 [NITROFURANTOIN] hydrochlorothiazide AdvReac Severe Hypotension Verified 09/11/24 11:10 ciprofloxacin [From Cipro] AdvReac Intermediate tendonitis Verified 09/11/24 11:10 morphine AdvReac Mild Pain Verified 09/11/24 11:10 Patient History Medical History History of kidney stones History of pyelonephritis Encounter for initial preventive physical examination covered by Medicare Gross hematuria (11/02/13) Obstructive sleep apnea of adult Postmenopausal atrophic vaginitis History of UTI Pyelonephritis of right kidney Right ureteral calculus Sleep apnea Diverticulosis Rosacea (11/20/15) Hypothyroidism (11/02/13) Surgical History Hx of cystoscopy (06/29/21) Anesthesia History of bilateral salpingo-oophorectomy (BSO) (2012) History of lithotripsy (2012) Status post surgery (07/17/10) Family History Brother Age: 72 Colon cancer Mother Cancer Pneumonia Ovarian cancer Father Lung cancer Colon cancer Alcoholism Grandfather [place] (myocardial infarction) Grandmother No problems noted. Sister Diabetes mellitus Family/Other Ovarian cancer Family/Other Heart disease Family/Other Heart disease Family/Other Heart disease Family/Other Heart disease Family/Other Heart disease Family/Other Heart disease Social History marital status: household members: spouse Smoking Status: Never smoker alcohol intake: current substance use type: does not use Smoking Status: Never smoker alcohol intake frequency: 0-2 drinks per day Exam Initial Vital Signs Initial Vital Signs: Vital Signs Temperature 98.3 F 09/11/24 11:10 Pulse Rate 82 09/11/24 11:10 Respiratory Rate 17 09/11/24 11:10 Blood Pressure 133/80 09/11/24 11:10 Pulse Oximetry 96 09/11/24 11:10 Oxygen Delivery Method Room Air 09/11/24 11:10 Const: Awake, alert, no acute distress, nontoxic appearing Cardiac: regular rate, regular rhythm RESP: unlabored, conversational without dyspnea GI: Soft, generalized lower abdominal tenderness to deep palpation without rebound or guarding Skin: Warm, Dry, intact, no rashes Neuro: AO x3, CN II-XII grossly intact, moves all extremities Course Orders Ordered: ED Orders 09/11/24 11:20 Urine Microscopic Stat 09/11/24 11:24 CT abdomen pelvis w con Stat 09/11/24 11:40 CBC Auto Diff [Complete Blood Count AUTO DIFF] Stat CMP [Comprehensive Metabolic Panel] Stat Lactate (Lactic Acid) Stat Hydromorphone HCl (Hydromorphone 0.5 Mg Inj) 0.5 mg IV Q2H PRN PRN Reason: Pain, Severe (7-10) Sodium Chloride (Normal Saline 0.9%) 1,000 mls @ 125 mls/hr IV CONT ODALIS Ondansetron HCl (Ondansetron 4 Mg/2 Ml Inj) 4 mg IV Q4HR PRN PRN Reason: Nausea And Vomiting Discontinued Medications Piperacillin Sod/Tazobactam (Sod 4.5 gm/ Sodium Chloride) 100 mls @ 200 mls/hr IV NOW ONE Stop: 09/11/24 13:54 Vital Signs Vital signs: Vital Signs - 8 hr 09/11/24 11:10 Temperature 98.3 F Pulse Rate 82 Respiratory Rate 17 Blood Pressure 133/80 Pulse Oximetry 96 Oxygen Delivery Method Room Air MDM - Nausea/Vomiting/Diarrhea Differential Diagnosis Differential diagnosis: Likely traveler's diarrhea, gastroenteritis and dehydration Lab Data 09/11/24 11:40 09/11/24 11:40 Labs: Lab Results 09/11/24 09/11/24 Range/Units 11:20 11:40 WBC 6.4 (4.5-11.0) X10^3/uL RBC 4.71 (4.0-5.2) X10^6/uL Hgb 14.4 (12.0-16.0) g/dL Hct 42.2 (36-46) % MCV 89.6 (80-100) fL MCH 30.6 (26-34) PG MCHC 34.2 (30-36) % RDW 13.6 (11.6-14.8) % Plt Count 237 (150-400) X10^3/uL Neut % (Auto) 62.3 (50-75) % Lymph % (Auto) 29.1 (25-40) % [place] % (Auto) 6.4 (3-14) % Eos % (Auto) 1.6 L (2-4) % Baso % (Auto) 0.6 (0-2) % Neut # (Auto) 4000 (1539-3010) /uL Lymph # (Auto) 1900 (1332-7569) /uL [place] # (Auto) 400 (0-900) /uL Eos # (Auto) 100 (0-450) /uL Baso # (Auto) 0 (0-100) /uL Sodium 140 (137-145) mmol/L Potassium 4.1 (3.4-5.1) mmol/L Chloride 105 (98-107) mmol/L Carbon Dioxide 26 (22-32) mmol/L BUN 14 (7-17) mg/dL Creatinine 0.91 (0.52-1.04) mg/dL Estimated GFR > 60 (>60) mL/min BUN/Creatinine Ratio 15.4 (6-22) Glucose 90 (80-110) mg/dL Lactate 1.3 (0.7-2.1) mmol/L Calcium 9.4 (8.4-10.2) mg/dL Total Bilirubin 0.6 (0.2-1.3) mg/dL AST 20 (14-36) IU/L ALT 15 (<35) IU/L Alkaline Phosphatase 46 (38-126) U/L Total Protein 7.4 (6.3-8.2) g/dL Albumin 4.5 (3.5-5.0) g/dL Globulin 2.9 (1.7-4.1) g/dL Albumin/Globulin Ratio 1.6 (1.0-2.8) Urine RBC 1-5/hpf (0-5/HPF) Urine WBC 0-1/hpf (0-5/HPF) Ur Squamous Epith Cells 0-1 /hpf (0-5/HPF) Urine Bacteria None seen (None) Ur Culture Indicated? Cult not indicated Vol Urine Centrifuged 10ml (spun) Urine Dip Bedside Urine Glucose Negative Bedside Urine Bilirubin - Negative Bedside Urine Ketone - Negative Urine Specific [place] 1.015 Bedside Urine Occult Blood - Negative Bedside Urine pH 6.0 Bedside Urine Protein - Negative Bedside Urine Urobilinogen - Negative Bedside Urine Nitrite - Negative Bedside Urine Leukocytes +/- [address] scan - abdomen/pelvis: Radiologist's Impression: PROCEDURE: CT ABDOMEN PELVIS W CON INDICATIONS: NAUSEA, LOWER ABD PAIN, HX DIVERTICULITIS TECHNIQUE: After the administration of intravenous contrast, axial sections acquired from the lung bases to the pubic symphysis. Coronal and sagittal reformats were performed. For radiation dose reduction, the following was used: automated exposure control, adjustment of mA and/or kV according to patient size. COMPARISON: [facility], CT, CT KUB, 06/30/2021, 21:50. FINDINGS: Image quality: Diagnostic. Lower Chest: Lung bases are clear. Small pericardial effusion. Possible small hiatal hernia. ABDOMEN: Liver: Liver lesions within the left hepatic lobe measuring 2.3 cm and right hepatic lobe measuring 1.8 cm. Gallbladder: No radiopaque gallstones or wall thickening. Biliary ducts: No biliary dilation. Pancreas: No ductal dilation. Spleen: Size is within normal limits. Adrenal Glands: No adrenal nodules. Kidneys and Ureters: No hydronephrosis. No solid mass. No complex renal cystic lesion which requires follow up. Stomach and Bowel: Significant diverticulosis. There is wall thickening and inflammation involving the distal descending colon, consistent with acute diverticulitis. Possible contained perforation in this area measuring 2.8 x 1.6 cm. No definite extraluminal gas. Peritoneum: No abnormal intraperitoneal fluid. No free air. Ventral Wall: No significant ventral hernia. Abdominal Nodes: No retroperitoneal or mesenteric adenopathy by size criteria. Vessels: Aorta and inferior vena cava are normal in size. Atherosclerotic vascular calcifications. PELVIS: Pelvic Organs: Uterine calcifications, likely representing fibroids.. Bladder: No bladder wall thickening, accounting for underdistention. Pelvic Nodes: No enlarged lymph nodes. Miscellaneous: No inguinal hernias are seen. Bones: No aggressive osseous abnormality. Degenerative changes of the spine. IMPRESSION: 1. Findings consistent with acute diverticulitis of the distal descending colon. There is possible contained perforation measuring 2.8 x 1.6 cm. No definite extraluminal gas outside of the contained perforation. Recommend colonoscopy after resolution of inflammation to exclude underlying neoplasm. 2. Nondilated fluid-filled loops of small bowel are present, nonspecific and may be physiologically normal versus enteritis. 3. Liver lesions as above which likely represent hemangiomas. Dictated by: William Everett M.D. on 09/11/2024 at 13:09 Approved by: William Everett M.D. on 09/11/2024 at 13:16 MDM Narrative Medical decision making narrative: Patient presenting for continued abdominal pain. She is concerned that she was dehydrated from her decreased p.o. intake due to her abdominal pain. Abdomen soft, generally tender to deep palpation in the lower quadrants without rebound, guarding, distention. Patient was not had any abdominal imaging despite reported numerous episodes of diverticulitis. In light of this blood work, CT imaging will be ordered. Patient was not appear to be clinically volume depleted, however we will order IV fluids per patient request. Laboratory work reviewed: WBC count 6.4, hemoglobin 14.4, platelet count 237, sodium 140, potassium 4.1, creatinine 0.91, normal liver enzymes. CT of the abdomen and pelvis shows extensive diverticulitis. There may be a small microperforation present. Case discussed with on-call general surgeon Dr. Veliz. He requested that patient be placed on IV antibiotics and admitted for serial exams. Patient in agreement to admission at this time. Discharge Plan Departure Patient Disposition: Admitted as Observation Clinical Impression: Diverticulitis Admit Date/Time: 09/11/24 13:43 Admit Provider: Emily Dumont
[2024-09-11 11:45] LABS: Urine Volume 10mL (spun)
[2024-09-11 11:46] LABS: Bacteria Urine None Seen; Culture Indicated Urine Cult Not Indicated; RBC Urine 1-5/HPF (0-5/HPF); Squamous Epithelial Cell Urine 0-1 /HPF (0-5/HPF); WBC Urine 0-1/HPF (0-5/HPF)
[2024-09-11 11:53] LABS: Add Manual Diff / Slide Review NO; Basophils Absolute Auto 0 /uL (0-100); Basophils Percent Auto 0.6 % (0-2); Eosinophils Absolute Auto 100 /uL (0-450); Eosinophils Percent Auto 1.6 % (2-4); Hematocrit 42.2 % (36-46); Hemoglobin 14.4 g/dL (12.0-16.0); Lymphocytes Absolute Auto 1900 /uL (1100-4500); Lymphocytes Percent Auto 29.1 % (25-40); Mean Corpuscular HGB Conc 34.2 % (30-36); Mean Corpuscular Hemoglobin 30.6 PG (26-34); Mean Corpuscular Volume 89.6 fL (80-100); Monocytes Absolute Auto 400 /uL (0-900); Monocytes Percent Auto 6.4 % (3-14); Neutrophils Absolute Auto 4000 /uL (1500-7000); Neutrophils Percent Auto 62.3 % (50-75); Platelet Count 237 X10^3/uL (150-400); Red Blood Cell Count 4.71 X10^6/uL (4.0-5.2); Red Cell Distribution Width 13.6 % (11.6-14.8); White Blood Cell Count 6.4 X10^3/uL (4.5-11.0)
[2024-09-11 12:06] LABS: Lactate (Lactic Acid) 1.3 mmol/L (0.7-2.1)
[2024-09-11 12:07] LABS: Alanine Aminotransferase 15 IU/L (<35); Albumin 4.5 g/dL (3.5-5.0); Albumin Globulin Ratio 1.6 (1.0-2.8); Alkaline Phosphatase 46 U/L (38-126); Aspartate Aminotransferase 20 IU/L (14-36); BUN Creatinine Ratio 15.4 (6-22); Bilirubin Total 0.6 mg/dL (0.2-1.3); Blood Urea Nitrogen 14 mg/dL (7-17); Calcium 9.4 mg/dL (8.4-10.2); Carbon Dioxide 26 mmol/L (22-32); Chloride 105 mmol/L (98-107); Estimated Glomerular Filt Rate > 60 mL/min (>60); Globulin 2.9 g/dL (1.7-4.1); Glucose 90 mg/dL (80-110); HEMOLYSIS < 15 (0-50); Potassium 4.1 mmol/L (3.4-5.1); Sodium 140 mmol/L (137-145); Total Protein 7.4 g/dL (6.3-8.2)
[2024-09-11 13:49] VITALS: BMI 24.8
[2024-09-11 14:01] VITALS: BP 168/79; PULSE 80; RESP 16; O2SAT 96
[2024-09-11] MEDS: PIPERACILLIN/TAZO 4.5 GM in SODIUM CHLORIDE 0.9% 100 ML IV (14:47)
[2024-09-11] MEDS: SODIUM CHLORIDE 0.9% 1,000 ML 125 ML IV (14:48)
--- NOTE | 2024-09-11 18:18 | PM.HP.1 ---
History of Present Illness History of Present Illness Date Patient Seen: 09/11/24 Time Patient Seen: 18:18 Chief complaint: dehydration via diverticulitis Narrative: This is a very pleasant 69-year-old female who is under the primary care of Dr. Rocha. Patient presented to the ER with complaints of abdominal pain. She has a history of recurrent diverticulitis and has a prescription at home if she gets symptomatic. She has been on the Augmentin from home for 2 days. This entire episode started after eating salmon and shellfish at [facility] and then that night on Friday after eating and she had severe painful abdominal cramps with bad nausea and felt poorly. She never had any diarrhea. She never had any vomiting. She did feel like she would vomit. She slept the entire next day and then on she began feeling like she was getting her typical symptoms of diverticulitis with diffuse abdominal pain that was very tender. She was started on the Augmentin and her abdominal pain quickly improved. However this morning she felt so dizzy and felt so poorly that she thought she was dehydrated and she needed IV fluids and so she came to the ER for that. She denied any abdominal pain at the time that she presented to the ER. She was found on CT to have what is believed to be a microperforation versus abscess. The ER doctor spoke with the surgeon on-call who recommended admission with IV antibiotics and serial abdominal exams. Surgery has been consulted. Patient otherwise has been in her usual state of health. She denies any bloody stools or fevers or vomiting. She does feel dehydrated. Patient's last bowel movement was yesterday she had a small bowel movement and then today very small bowel movement prior to this she had not had a bowel movement since Friday. Patient is still feeling nauseous she has not eaten much in his tried to keep fluids in. Past medical history: 1. Recurrent diverticulitis 2. Hypertension 3. Hypothyroidism 4. Nephrolithiasis 5. Obstructive sleep apnea 6. History of recurrent UTIs Past surgical history: 1. Cystoscopy with stent placement for nephrolithiasis 2. Bilateral salpingo-oophorectomy due to family history of ovarian cancer 3. D&C and hysteroscopy Family history: Brother with colon cancer Mom of ovarian cancer at 82 Father at 80 from lung cancer and colon cancer Sister with diabetes Health related behavior Patient does not smoke Patient is active Patient drinks small glass of wine nightly Review of systems Patient denies a fever throughout this whole episode Patient denies any blood in her stool Patient has not had any diarrhea Patient's last colonoscopy was a year ago and no polyps mentioned but she did have significant diverticulosis Patient denies any recent weight loss or weight gain Patient did not have any vomiting but has had nausea throughout this whole episode [facility] Medical History History of kidney stones History of pyelonephritis Encounter for initial preventive physical examination covered by Medicare Gross hematuria (11/02/13) Obstructive sleep apnea of adult Postmenopausal atrophic vaginitis History of UTI Pyelonephritis of right kidney Right ureteral calculus Sleep apnea Diverticulosis Rosacea (11/20/15) Hypothyroidism (11/02/13) Surgical History Hx of cystoscopy (06/29/21) Anesthesia History of bilateral salpingo-oophorectomy (BSO) (2012) History of lithotripsy (2012) Status post surgery (07/17/10) Family History Brother Age: 72 Colon cancer Mother Cancer Pneumonia Ovarian cancer Father Lung cancer Colon cancer Alcoholism Grandfather [place] (myocardial infarction) Grandmother No problems noted. Sister Diabetes mellitus Family/Other Ovarian cancer Family/Other Heart disease Family/Other Heart disease Family/Other Heart disease Family/Other Heart disease Family/Other Heart disease Family/Other Heart disease Social History marital status: household members: spouse Smoking Status: Never smoker alcohol intake: current substance use type: does not use Meds Home Medications and Allergies Home Medications Medication Instructions Recorded Confirmed Type Resmed AirSense 10 CPAP #1 ea 02/26/19 08/30/24 Rx ascorbate calcium (vitamin C) 500 500 mg PO DAILY 11/29/21 08/30/24 History mg tablet [id number]-nosniri-FOS-bromeln PO 11/29/21 08/30/24 History lactobacillus combination no.9 PO 11/29/21 08/30/24 History [Adult 50 Plus Probiotic] iron sucrose 50 mg iron/2.5 mL 100 mg IV 3XW 01/07/24 08/30/24 History intravenous solution (Venofer) levothyroxine 88 mcg tablet 88 mcg PO QAM #90 tabs 07/23/24 09/11/24 Rx (Synthroid) lisinopril 40 mg tablet (Zestril) 20 mg PO DAILY 08/30/24 09/11/24 History amlodipine 2.5 mg tablet 2.5 mg PO DAILY #30 tabs 09/02/24 09/11/24 Rx bupropion HCl 200 mg tablet,12 hr 200 mg PO DAILY 09/11/24 09/11/24 History sustained-release (Wellbutrin SR) estradiol 0.01% (0.1 mg/gram) 1 g vaginal 3XW 09/11/24 09/11/24 History vaginal cream (Estrace) Allergies Allergy/AdvReac Type Severity Reaction Status Date / Time carisoprodol [From SOMA] Allergy Severe Hives Verified 09/11/24 11:10 Sulfa (Sulfonamide Allergy Intermediate Confusion Verified 09/11/24 11:10 Antibiotics) [SULFA (SULFONAMIDE ANTIBIOTICS)] nitrofurantoin Allergy Unknown Verified 09/11/24 11:10 [NITROFURANTOIN] hydrochlorothiazide AdvReac Severe Hypotension Verified 09/11/24 11:10 ciprofloxacin [From Cipro] AdvReac Intermediate tendonitis Verified 09/11/24 11:10 morphine AdvReac Mild Pain Verified 09/11/24 11:10 Review of Systems Review of Systems Narrative: Twelve point review of systems negative other than HPI Exam Vital Signs (past 8 hours): - 09/11/24 11:10 09/11/24 14:01 Temperature 98.3 F Pulse Rate 82 80 Respiratory Rate 17 16 Blood Pressure 133/80 168/79 H Pulse Oximetry 96 96 Oxygen Delivery Method Room Air Room Air Oxygen Delivery Method Room Air Narrative Exam Narrative: Patient is alert and oriented x3. Patient is sitting in the hospital bed with her at bedside in no apparent distress. HEENT: Patient has rosacea. Mucous membranes moist and pink without any lesions Neck: Supple without adenopathy or masses Chest: Clear to auscultation without wheezes rhonchi or crackles Cor: Regular rate and rhythm without a murmur Abdomen: Positive bowel sounds x4. Abdomen is soft. Abdomen is nontender. There is no evidence of hepatosplenomegaly or guarding. There is no tenderness there is no rebound. Abdomen is not distended Extremities no edema, pulses intact Skin no rashes other than rosacea on the face Neurologic exam is nonfocal Objective Labs 09/11/24 11:40 09/11/24 11:40 Labs: Laboratory Results - last 24 hr 09/11/24 09/11/24 11:20 11:40 WBC 6.4 RBC 4.71 Hgb 14.4 Hct 42.2 MCV 89.6 MCH 30.6 MCHC 34.2 RDW 13.6 Plt Count 237 Neut % (Auto) 62.3 Lymph % (Auto) 29.1 [place] % (Auto) 6.4 Eos % (Auto) 1.6 L Baso % (Auto) 0.6 Neut # (Auto) 4000 Lymph # (Auto) 1900 [place] # (Auto) 400 Eos # (Auto) 100 Baso # (Auto) 0 Sodium 140 Potassium 4.1 Chloride 105 Carbon Dioxide 26 BUN 14 Creatinine 0.91 Estimated GFR > 60 BUN/Creatinine Ratio 15.4 Glucose 90 Lactate 1.3 Calcium 9.4 Total Bilirubin 0.6 AST 20 ALT 15 Alkaline Phosphatase 46 Total Protein 7.4 Albumin 4.5 Globulin 2.9 Albumin/Globulin Ratio 1.6 Urine RBC 1-5/hpf Urine WBC 0-1/hpf Ur Squamous Epith Cells 0-1 /hpf Urine Bacteria None seen Ur Culture Indicated? Cult not indicated Vol Urine Centrifuged 10ml (spun) Assessment & Plan Assessment & Plan narrative: 69-year-old female who presented to the ER feeling poorly with current treatment for acute diverticulitis found to have possible microperforation versus abscess. Patient was afebrile with no hypoxia and no elevated white blood cell count. Surgery was consulted and recommended admission with IV antibiotics and serial exams. Per ER note exam is unchanged. Plan: Patient will be admitted to the hospital for further monitoring and treatment. We will continue with IV Zosyn Q 8 hours. Will trend white blood cell count and labs. Patient will be NPO except for medications with sips of water. Will continue with IV fluids And will await opinion of surgery in a.m.. Assessment 2. History of nephrolithiasis no current symptoms. No findings of nephrolithiasis on CT scan. Plan will continue to monitor Assessment 3. Hypertension with elevated blood pressure now because patient has not taken her amlodipine and lisinopril. Plan will continue outpatient treatment which is amlodipine 2.5 mg daily and lisinopril 20 mg daily Assessment 4. Hypothyroidism Plan: Will continue levothyroxine as outpatient Assessment 5. Anxiety on bupropion Plan: Will continue bupropion will take in the a.m.. Will provide lorazepam as needed. Code status is full code 79 minutes was spent with patient in discussing with ER physician, nursing and reviewing her clinic chart as well as ER report and workup. This included meeting with patient and her formulating a plan and documentation. Time-Based Coding :: [TOTAL MINUTES] spent with patient and on the chart (including review of chart, obtaining history, exam, reviewing outside data, placing orders, documenting exam and treatment plan, and counseling patient) on [DATE].
[2024-09-11] MEDS: ACETAMINOPHEN 325 MG TABLET 650 MG PO (19:45)
[2024-09-11 20:00] VITALS: BP 114/81; BP 120/83; PULSE 74; RESP 14; TEMP 37.1; O2SAT 96
[2024-09-11] MEDS: LEVOTHYROXINE 88 MCG TABLET PO (21:12)
[2024-09-11] MEDS: PIPERACILLIN/TAZO 3.375 GM in SODIUM CHLORIDE 0.9% 100 ML IV (21:12)
[2024-09-12] MEDS: SODIUM CHLORIDE 0.9% 1,000 ML 125 ML IV ×3 (02:07→22:15)
[2024-09-12] MEDS: PIPERACILLIN/TAZO 3.375 GM in SODIUM CHLORIDE 0.9% 100 ML IV ×3 (04:55→20:51)
[2024-09-12 06:19] LABS: Add Manual Diff / Slide Review NO; Basophils Absolute Auto 0 /uL (0-100); Basophils Percent Auto 0.4 % (0-2); Eosinophils Absolute Auto 200 /uL (0-450); Eosinophils Percent Auto 2.2 % (2-4); Hematocrit 37.8 % (36-46); Hemoglobin 12.9 g/dL (12.0-16.0); Lymphocytes Absolute Auto 2100 /uL (1100-4500); Lymphocytes Percent Auto 29.5 % (25-40); Mean Corpuscular HGB Conc 34.2 % (30-36); Mean Corpuscular Hemoglobin 30.6 PG (26-34); Mean Corpuscular Volume 89.4 fL (80-100); Monocytes Absolute Auto 600 /uL (0-900); Monocytes Percent Auto 8.7 % (3-14); Neutrophils Absolute Auto 4200 /uL (1500-7000); Neutrophils Percent Auto 59.2 % (50-75); Platelet Count 211 X10^3/uL (150-400); Red Blood Cell Count 4.22 X10^6/uL (4.0-5.2); Red Cell Distribution Width 13.1 % (11.6-14.8); White Blood Cell Count 7.1 X10^3/uL (4.5-11.0)
[2024-09-12 06:26] LABS: Alanine Aminotransferase 11 IU/L (<35); Albumin 3.7 g/dL (3.5-5.0); Albumin Globulin Ratio 1.5 (1.0-2.8); Alkaline Phosphatase 46 U/L (38-126); Aspartate Aminotransferase 19 IU/L (14-36); BUN Creatinine Ratio 15.9 (6-22); Bilirubin Total 0.8 mg/dL (0.2-1.3); Blood Urea Nitrogen 14 mg/dL (7-17); Calcium 8.6 mg/dL (8.4-10.2); Carbon Dioxide 25 mmol/L (22-32); Chloride 110 mmol/L (98-107); Estimated Glomerular Filt Rate > 60 mL/min (>60); Globulin 2.5 g/dL (1.7-4.1); Glucose 92 mg/dL (80-110); HEMOLYSIS < 15 (0-50); Potassium 3.8 mmol/L (3.4-5.1); Sodium 140 mmol/L (137-145); Total Protein 6.2 g/dL (6.3-8.2)
[2024-09-12] MEDS: LEVOTHYROXINE 88 MCG TABLET PO (06:29)
[2024-09-12 07:00] VITALS: BP 113/55; PULSE 77; RESP 16; TEMP 36.4; O2SAT 99
[2024-09-12] MEDS: buPROPion SR 100 MG TAB 200 MG PO (08:15)
--- NOTE | 2024-09-12 09:44 | PM.CN.IH.1 ---
History of Present Illness Consult details Date Patient Seen: 09/12/24 Time Patient Seen: 09:44 Chief complaint: dehydration via diverticulitis Narrative: I am NOT convinced by the CT reading..BUT she has SEVERE DIVERTICULOSIS of her colon, and apparently she gets acute divertiulitis, q 9 months!!! for the past 10 years, I counseled her re the BENEFIT of lap sigmoidectomy, to avoid perforation and colostomy, and she agreed, will wait 6-8 wks, and I would prefer to do it with the DeciZium[employer] robot, as soon as it is available. Meds Home Medications and Allergies Home Medications Medication Instructions Recorded Confirmed Type Resmed AirSense 10 CPAP #1 ea 02/26/19 09/11/24 Rx levothyroxine 88 mcg tablet 88 mcg PO QAM #90 tabs 07/23/24 09/11/24 Rx (Synthroid) lisinopril 40 mg tablet (Zestril) 20 mg PO DAILY 08/30/24 09/11/24 History amlodipine 2.5 mg tablet 2.5 mg PO DAILY #30 tabs 09/02/24 09/11/24 Rx bupropion HCl 200 mg tablet,12 hr 200 mg PO DAILY 09/11/24 09/11/24 History sustained-release (Wellbutrin SR) estradiol 0.01% (0.1 mg/gram) 1 g vaginal 3XW 09/11/24 09/11/24 History vaginal cream (Estrace) Allergies Allergy/AdvReac Type Severity Reaction Status Date / Time carisoprodol [From SOMA] Allergy Severe Hives Verified 09/11/24 11:10 Sulfa (Sulfonamide Allergy Intermediate Confusion Verified 09/11/24 11:10 Antibiotics) [SULFA (SULFONAMIDE ANTIBIOTICS)] nitrofurantoin Allergy Unknown Verified 09/11/24 11:10 [NITROFURANTOIN] hydrochlorothiazide AdvReac Severe Hypotension Verified 09/11/24 11:10 ciprofloxacin [From Cipro] AdvReac Intermediate tendonitis Verified 09/11/24 11:10 morphine AdvReac Mild Pain Verified 09/11/24 11:10 Review of Systems Review of Systems ROS: Yes All systems reviewed with the patient and are negative except as otherwise documented Exam Vital Signs (past 8 hours): Oxygen Delivery Method Room Air Oxygen Flow Rate 0 Narrative Exam Narrative: Abdomen SOFT, NT, ND, positive BS, NO abscess clinically!! Objective Labs 09/12/24 04:59 09/12/24 04:59 Labs: Laboratory Results - last 24 hr 09/11/24 09/11/24 09/12/24 11:20 11:40 04:59 WBC 6.4 7.1 RBC 4.71 4.22 Hgb 14.4 12.9 Hct 42.2 37.8 MCV 89.6 89.4 MCH 30.6 30.6 MCHC 34.2 34.2 RDW 13.6 13.1 Plt Count 237 211 Neut % (Auto) 62.3 59.2 Lymph % (Auto) 29.1 29.5 Bland % (Auto) 6.4 8.7 Eos % (Auto) 1.6 L 2.2 Baso % (Auto) 0.6 0.4 Neut # (Auto) 4000 4200 Lymph # (Auto) 1900 2100 Bland # (Auto) 400 600 Eos # (Auto) 100 200 Baso # (Auto) 0 0 Sodium 140 140 Potassium 4.1 3.8 Chloride 105 110 H Carbon Dioxide 26 25 BUN 14 14 Creatinine 0.91 0.88 Estimated GFR > 60 > 60 BUN/Creatinine Ratio 15.4 15.9 Glucose 90 92 Lactate 1.3 Calcium 9.4 8.6 Total Bilirubin 0.6 0.8 AST 20 19 ALT 15 11 Alkaline Phosphatase 46 46 Total Protein 7.4 6.2 L Albumin 4.5 3.7 Globulin 2.9 2.5 Albumin/Globulin Ratio 1.6 1.5 Urine RBC 1-5/hpf Urine WBC 0-1/hpf Ur Squamous Epith Cells 0-1 /hpf Urine Bacteria None seen Ur Culture Indicated? Cult not indicated Vol Urine Centrifuged 10ml (spun) [facility] Medical History History of kidney stones History of pyelonephritis Encounter for initial preventive physical examination covered by Medicare Gross hematuria (11/02/13) Obstructive sleep apnea of adult Postmenopausal atrophic vaginitis History of UTI Pyelonephritis of right kidney Right ureteral calculus Sleep apnea Diverticulosis Rosacea (11/20/15) Hypothyroidism (11/02/13) Surgical History Hx of cystoscopy (06/29/21) Anesthesia History of bilateral salpingo-oophorectomy (BSO) (2012) History of lithotripsy (2012) Status post surgery (07/17/10) Family History Brother Age: 72 Colon cancer Mother Cancer Pneumonia Ovarian cancer Father Lung cancer Colon cancer Alcoholism Grandfather [place] (myocardial infarction) Grandmother No problems noted. Sister Diabetes mellitus Family/Other Ovarian cancer Family/Other Heart disease Family/Other Heart disease Family/Other Heart disease Family/Other Heart disease Family/Other Heart disease Family/Other Heart disease Social History marital status: household members: spouse Tobacco & Substance Use Smoking Status: Never smoker alcohol intake: current substance use type: does not use Assessment & Plan Assessment and plan (1) Sigmoid diverticulosis: Problem details: I am NOT convinced by the CT reading..BUT she has SEVERE DIVERTICULOSIS of her colon, and apparently she gets acute divertiulitis, q 9 months!!! for the past 10 years, I counseled her re the BENEFIT of lap sigmoidectomy, to avoid perforation and colostomy, and she agreed, will wait 6-8 wks, and I would prefer to do it with the DaVinci robot, as soon as it is available. Continue IV Zosyn, and will allow her full liquid diet, and will follow. Status: Acute Time-Based Coding :: [TOTAL MINUTES] spent with patient and on the chart (including review of chart, obtaining history, exam, reviewing outside data, placing orders, documenting exam and treatment plan, and counseling patient) on [DATE]. PROFEE Charge Codes Inpatient or Observation consultation: [id number]
--- NOTE | 2024-09-12 12:22 | PM.PN.1 ---
Subjective Subjective Date Patient Seen: 09/12/24 Time Patient Seen: 12:23 Interval history: Patient had an unremarkable night and slept well. She denies any abdominal pain. She is passing flatus but no stool. No vomiting. She was just had clear liquids in his doing well with that. No new complaints No nausea or vomiting. No chest pain or shortness a breath 12 point review of systems otherwise negative. Patient was concerned her blood pressure was low and so she declined her blood pressure meds this morning blood pressure remained stable Exam Vital Signs (past 8 hours): - 09/12/24 07:00 Temperature 97.6 F Pulse Rate 77 Respiratory Rate 16 Blood Pressure 113/55 L Pulse Oximetry 99 Oxygen Flow Rate 0 Oxygen Delivery Method Room Air Oxygen Flow Rate 0 Narrative Exam Narrative: Alert and oriented x3 Patient is sitting in hospital bed in no acute distress HEENT unremarkable Neck is supple Chest: Clear to auscultation without wheezes rhonchi or crackles Cor: Regular rate and rhythm without murmur Abdomen: Positive bowel sounds x4, slightly distended but no tenderness benign exam Extremities no edema pulses intact Neurologic exam nonfocal Objective Labs 09/12/24 04:59 09/12/24 04:59 Labs: Laboratory Results - last 24 hr 09/12/24 04:59 WBC 7.1 RBC 4.22 Hgb 12.9 Hct 37.8 MCV 89.4 MCH 30.6 MCHC 34.2 RDW 13.1 Plt Count 211 Neut % (Auto) 59.2 Lymph % (Auto) 29.5 Miller % (Auto) 8.7 Eos % (Auto) 2.2 Baso % (Auto) 0.4 Neut # (Auto) 4200 Lymph # (Auto) 2100 Miller # (Auto) 600 Eos # (Auto) 200 Baso # (Auto) 0 Sodium 140 Potassium 3.8 Chloride 110 H Carbon Dioxide 25 BUN 14 Creatinine 0.88 Estimated GFR > 60 BUN/Creatinine Ratio 15.9 Glucose 92 Calcium 8.6 Total Bilirubin 0.8 AST 19 ALT 11 Alkaline Phosphatase 46 Total Protein 6.2 L Albumin 3.7 Globulin 2.5 Albumin/Globulin Ratio 1.5 [facility] Medical History History of kidney stones History of pyelonephritis Encounter for initial preventive physical examination covered by Medicare Gross hematuria (11/02/13) Obstructive sleep apnea of adult Postmenopausal atrophic vaginitis History of UTI Pyelonephritis of right kidney Right ureteral calculus Sleep apnea Diverticulosis Rosacea (11/20/15) Hypothyroidism (11/02/13) Surgical History Hx of cystoscopy (06/29/21) Anesthesia History of bilateral salpingo-oophorectomy (BSO) (2012) History of lithotripsy (2012) Status post surgery (07/17/10) Family History Brother Age: 72 Colon cancer Mother Cancer Pneumonia Ovarian cancer Father Lung cancer Colon cancer Alcoholism Grandfather [place] (myocardial infarction) Grandmother No problems noted. Sister Diabetes mellitus Family/Other Ovarian cancer Family/Other Heart disease Family/Other Heart disease Family/Other Heart disease Family/Other Heart disease Family/Other Heart disease Family/Other Heart disease Social History marital status: household members: spouse Smoking Status: Never smoker alcohol intake: current substance use type: does not use Assessment & Plan Assessment & Plan narrative: 69-year-old female hospital day 2. For acute diverticulitis Assessment 1. Diverticulitis with CT scan suggesting abscess and microperforation. Appreciate general surgery consultation. They feel that this is highly unlikely as do I given patient's presenting complaint really of dizziness with resolved abdominal pain and normal white blood cell count and no fever. Patient continues to do well. She is just eaten clear liquids and is feeling okay. Will continue with IV Zosyn and advance diet as tolerated and continue to monitor. Patient will likely proceed with left hemicolectomy due to recurrent diverticulitis. She discuss this with surgery as well. Clearly this will be done as an outpatient. Once she is recovered from her current episode as long as she continues to improve. We will continue with IV fluids at 125 an hour Assessment 2. History of nephrolithiasis no current symptoms. No findings of nephrolithiasis on CT scan. Plan will continue to monitor Assessment 3. Hypertension with elevated blood pressure now because patient has not taken her amlodipine and lisinopril. Now improved. Patient declined bp meds this am which is reasonable. Plan will continue outpatient treatment which is amlodipine 2.5 mg daily and lisinopril 20 mg daily, give in am Assessment 4. Hypothyroidism Plan: Will continue levothyroxine as outpatient Assessment 5. Anxiety on bupropion Plan: Will continue bupropion Will provide lorazepam as needed. Code status is full code 55 minutes was spent with patient in discussing with nursing and reviewing chart. This included meeting with patient and formulating a plan and documentation. Time-Based Coding :: [TOTAL MINUTES] spent with patient and on the chart (including review of chart, obtaining history, exam, reviewing outside data, placing orders, documenting exam and treatment plan, and counseling patient) on [DATE].
--- NOTE | 2024-09-12 13:55 | CM.DANOTE ---
DCP Assessment Note: Pt is a 69yo female, resident of [place], is admitted for diverticulitis. Pt lives in a house with her spouse, Herson. Pt's Primary Care Provider is Dr. Bertrand Rocha and insurance is Medicare. Reviewed chart and discussed with multidisciplinary team pt's medical status and initial discharge needs. Per surgery consultation, outpatient left hemicolectomy will be scheduled after pt is stable from this admission. Plan is for pt to obtain IV abx and advance diet as tolerated. DCP met w/patient at bedside; introduced self and role. Patient was found in bed, alert and oriented, cooperative with assessment. Pt confirmed living situation and good support in . Pt expressed preference in discharging home when stable. Pt has no prior hx of home health or SNF, declines a need for any referrals in the community at this time. Plan: Anticipating discharge home with spouse to transport when stable. CM team will follow closely for coordination of discharge plans. 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 Yes Advance Directives on File No History Provided By Patient Has Patient been admitted in last 30 No days? Prior Living Arrangements House Household Members spouse Type of transporation used prior to Drives own vehicle admit Independent with ADL's Yes Is patient alert and oriented? Yes Caregiver for Another No Discharge Plan Home Referrals Initiated None needed Review Status In Process Please Provide Date Initial DC 09/12/24 Assessment Was Performed Next Review Type Continued Stay Review
[2024-09-12 20:00] VITALS: BP 140/107; PULSE 71; RESP 14; TEMP 37.1; O2SAT 96
[2024-09-12] MEDS: ACETAMINOPHEN 325 MG TABLET 650 MG PO (20:49)
[2024-09-13] MEDS: PIPERACILLIN/TAZO 3.375 GM in SODIUM CHLORIDE 0.9% 100 ML IV (05:28)
[2024-09-13] MEDS: LEVOTHYROXINE 88 MCG TABLET PO (06:36)
[2024-09-13 07:00] VITALS: O2SAT 96
[2024-09-13 08:00] VITALS: BP 156/94; PULSE 73; RESP 17; TEMP 36.8; O2SAT 95
--- NOTE | 2024-09-13 08:24 | P.DS_ITS ---
History of Present Illness History of Present Illness Chief complaint: dehydration via diverticulitis Discharge Providers Provider Date of admission: 09/11/24 13:43 Discharge Date: 09/13/24 Primary care physician: Bertrand Rocha MD Consults: 09/11/24 14:01 Consult to General Surgery Urgent Comment: Consulting Provider: Ibrahima Veliz Reason for consultation: diverticulitis with microperforation Has provider been notified: Yes Discharge provider: Bertrand Rocha MD Summary Hospital Course Discharge Diagnosis: Acute descending colon diverticulitis Acute descending colon diverticular abscess Acute dehydration History of kidney stones Hypertension Hypothyroidism on replacement Generalized anxiety disorder Hospital Course: Patient was admitted to the hospital with findings concerning for acute diverticulitis with diverticular abscess. Patient was admitted to the hospital kept NPO started on IV fluids and IV antibiotics and pain medication during the hospital stay she had a surgical consultation who recommended conservative management and treatment with cooling down of diverticulitis with IV antibiotics. In monitoring symptoms and pain. Recommended outpatient follow-up with potential surgical procedure 6-8 weeks after. During the hospital stay patient was taking Tylenol for pain she received IV fluid her blood pressure was well controlled for vital signs were stable including her temperature. Pain was [id number]. At the time of discharge she was tolerating her diet she was ambulating. Discharge plan will include continue 5 days of antibiotics. Slowly advance diet from clear liquid to soft until she comes he has me next Friday. 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 Exam Vital Signs (past 8 hours): Oxygen Delivery Method Room Air Oxygen Flow Rate 0 Narrative Exam Narrative: Gen.: Alert good historian HEENT: Pupils equal round and reactive or mucosa is moist Cardio: S1-S2 regular rate and rhythm no murmurs appreciated. Respiratory: Lungs are clear to auscultation no wheezes or crackles normal respiratory effort. Abdomen: Soft nontender no distention Extremities: Warm dry perfused Neurologic: No focal deficits Objective Labs 09/12/24 04:59 09/12/24 04:59 [facility] Medical History History of kidney stones History of pyelonephritis Encounter for initial preventive physical examination covered by Medicare Gross hematuria (11/02/13) Obstructive sleep apnea of adult Postmenopausal atrophic vaginitis History of UTI Pyelonephritis of right kidney Right ureteral calculus Sleep apnea Diverticulosis Rosacea (11/20/15) Hypothyroidism (11/02/13) Surgical History Hx of cystoscopy (06/29/21) Anesthesia History of bilateral salpingo-oophorectomy (BSO) (2012) History of lithotripsy (2012) Status post surgery (07/17/10) Family History Brother Age: 72 Colon cancer Mother Cancer Pneumonia Ovarian cancer Father Lung cancer Colon cancer Alcoholism Grandfather [place] (myocardial infarction) Grandmother No problems noted. Sister Diabetes mellitus Family/Other Ovarian cancer Family/Other Heart disease Family/Other Heart disease Family/Other Heart disease Family/Other Heart disease Family/Other Heart disease Family/Other Heart disease Social History marital status: household members: spouse Smoking Status: Never smoker alcohol intake: current substance use type: does not use Discharge Plan Discharge Plan Patient Disposition: Home Provider Discharge Comment: Discharge home follow up with Dr. Rocha in 1 week clear liquid advancing to soft diet until we see her next Friday. Discharge orders & Medications Prescriptions: New amoxicillin-pot clavulanate [Augmentin XR] 1,000-62.5 mg tablet extended release 12 hr 1 tab PO BID Qty: 10 1RF Continued (DME) Resmed AirSense 10 CPAP Qty: 1 0RF Dose Instruction: As directed Rx Instructions: As directed with air pressure auto set 4-12 levothyroxine [Synthroid] 88 mcg tablet 88 mcg PO QAM Qty: 90 3RF amlodipine 2.5 mg tablet 2.5 mg PO DAILY Qty: 30 3RF lisinopril [Zestril] 40 mg tablet 20 mg PO DAILY estradiol [Estrace] 0.01 % (0.1 mg/gram) cream 1 g vaginal 3XW bupropion HCl [Wellbutrin SR] 200 mg tablet sustained-release 12 hr 200 mg PO DAILY Follow up/Referrals: Bertrand Rocha MD [Primary Care Provider] - Visit Report/Discharge Packet Stand Alone Forms: Patient Portal/API, Stroke Signs & Symptoms Discharge Data Primary Care Provider: Bertrand Rocha Attending Provider: Bertrand Rocha Admit Date/Time: 09/11/24 13:43 PROFEE Charge Codes Discharge inpatient/observation: [id number]
[2024-09-13] MEDS: AMLODIPINE 5 MG TABLET 2.5 MG PO (09:04)
[2024-09-13] MEDS: buPROPion SR 100 MG TAB 200 MG PO (09:06)
[2024-09-13 09:07] VITALS: BP 156/94
[2024-09-13] MEDS: lisinopriL 20 MG TABLET PO (09:07)
--- NOTE | 2024-09-13 12:34 | PM.PN.IH.1 ---
Subjective Subjective Date Patient Seen: 09/13/24 Time Patient Seen: 12:34 Interval history: She feels 100% better, and ready to be discharged, ON PO Antibiotics x 7-10 days, and then in 6-8 weeks she NEEDS to f/u for a lap sigmoidectomy, after a bowel prep. Exam Vital Signs (past 8 hours): - 09/13/24 07:00 09/13/24 08:00 09/13/24 09:07 Temperature 98.2 F Pulse Rate 73 Respiratory Rate 17 Blood Pressure 156/94 H 156/94 H Pulse Oximetry 96 95 Oxygen Delivery Method Room Air Oxygen Flow Rate 0 Oxygen Delivery Method Room Air Oxygen Flow Rate 0 Objective Labs 09/12/24 04:59 09/12/24 04:59 [facility] Medical History History of kidney stones History of pyelonephritis Encounter for initial preventive physical examination covered by Medicare Gross hematuria (11/02/13) Obstructive sleep apnea of adult Postmenopausal atrophic vaginitis History of UTI Pyelonephritis of right kidney Right ureteral calculus Sleep apnea Diverticulosis Rosacea (11/20/15) Hypothyroidism (11/02/13) Surgical History Hx of cystoscopy (06/29/21) Anesthesia History of bilateral salpingo-oophorectomy (BSO) (2012) History of lithotripsy (2012) Status post surgery (07/17/10) Family History Brother Age: 72 Colon cancer Mother Cancer Pneumonia Ovarian cancer Father Lung cancer Colon cancer Alcoholism Grandfather [place] (myocardial infarction) Grandmother No problems noted. Sister Diabetes mellitus Family/Other Ovarian cancer Family/Other Heart disease Family/Other Heart disease Family/Other Heart disease Family/Other Heart disease Family/Other Heart disease Family/Other Heart disease Social History marital status: household members: spouse Smoking Status: Never smoker alcohol intake: current substance use type: does not use Assessment & Plan Assessment and plan (1) Sigmoid diverticulosis: Problem details: I am NOT convinced by the CT reading..BUT she has SEVERE DIVERTICULOSIS of her colon, and apparently she gets acute divertiulitis, q 9 months!!! for the past 10 years, I counseled her re the BENEFIT of lap sigmoidectomy, to avoid perforation and colostomy, and she agreed, will wait 6-8 wks, and I would prefer to do it with the DaVinci robot, as soon as it is available. Continue IV Zosyn, and will allow her full liquid diet, and will follow. 09/13/24: She feels 100% better, and ready to be discharged, ON PO Antibiotics x 7-10 days, and then in 6-8 weeks she NEEDS to f/u for a lap sigmoidectomy, after a bowel prep. Status: Acute Time-Based Coding :: [TOTAL MINUTES] spent with patient and on the chart (including review of chart, obtaining history, exam, reviewing outside data, placing orders, documenting exam and treatment plan, and counseling patient) on [DATE]. 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
--- NOTE | 2024-09-13 12:40 | CM.DPNOTE ---
DCP note COMPRESS MACHINE OPERATOR reviewed EMR. Per chart review, pt cleared to dc home today. Hemicolectomy in OP setting. COMPRESS MACHINE OPERATOR updated TCM team to pt's dc. Per previous CM notes/chart review, no identified barriers to safe dc home with spouse support and OP f/u at this time. CM team will continue to follow as needed MARINA Bermeo
== END 2024-09-13 14:27 | disposition home or self-care (01) ==
LOC: ED 11:16 → AC 13:43
PROVIDERS: Admitting Provider Family Medicine; Emergency Provider Emergency Medicine; PCP Family Medicine; Referring Provider Emergency Medicine; Visit Provider Family Medicine
DX: K57.20 Diverticulitis of large intestine with perforation and abscess without bleeding (principal); I10 Essential (primary) hypertension; E03.9 Hypothyroidism, unspecified; E86.0 Dehydration; F41.1 Generalized anxiety disorder; G47.30 Sleep apnea, unspecified; Z79.890 Hormone replacement therapy; Z87.442 Personal history of urinary calculi; Z87.440 Personal history of urinary (tract) infections
CPT/HCPCS: 36415; 74177; 80053; 81003; 81015; 83605; 85025; 96361; 96365; 96366; 99232; 99233; 99238; 99284; G0378; J2543; Q9967

== ENCOUNTER → 2024-09-17 13:22 | Outpatient (CLI) | payer MEDICARE, OTHER, SELFPAY ==
[2024-09-11 13:49] VITALS: BMI 24.8
[2024-09-17 14:33] LABS: Clostridium Difficile Tox PCR Negative for C. diff (Negative)
== END ==
LOC: LAB 13:23
PROVIDERS: PCP Family Medicine; Referring Provider Family Medicine; Visit Provider Family Medicine
DX: K52.1 Toxic gastroenteritis and colitis (principal); R19.7 Diarrhea, unspecified; T36.95XA Adverse effect of unspecified systemic antibiotic, initial encounter
CPT/HCPCS: 87493

== ENCOUNTER → 2024-10-28 08:34 | Outpatient (CLI) | payer MEDICARE, OTHER, SELFPAY ==
--- NOTE | 2024-10-28 08:36 | DI.CT.S_ITS ---
PROCEDURE: CT ABDOMEN PELVIS W CON INDICATIONS: DIVERTICULITIS TECHNIQUE: After the administration of intravenous contrast, axial sections acquired from the lung bases to the pubic symphysis. Coronal and sagittal reformats were performed. For radiation dose reduction, the following was used: automated exposure control, adjustment of mA and/or kV according to patient size. COMPARISON: [facility], , US RENAL COMPLETE, 07/02/2024, 6:59. [facility], US, US ABDOMEN LIMITED, 07/12/2024, 8:42. [facility], CT, CT ABDOMEN PELVIS W CON, 09/11/2024, 12:02. [facility], CT, ABDOMEN/PELVIS WITH CONTRAST, 09/02/2017, 10:52. FINDINGS: Image quality: Diagnostic. Lower Chest: No significant findings. Note is made of a small hiatal hernia causing prominence of the esophagogastric junction, previously present. ABDOMEN: Liver: No solid mass. A left upper hepatic lobe and a right lower hepatic lobe hemangioma are again seen. Gallbladder: No radiopaque gallstones or wall thickening. Biliary ducts: No biliary dilation. Pancreas: No ductal dilation. Spleen: Size is within normal limits. Adrenal Glands: No adrenal nodules. Kidneys and Ureters: No hydronephrosis. No solid mass. No complex renal cystic lesion which requires follow up. A previously reported left kidney nonobstructive calculus is not currently present. No calculus is seen along the course of the left ureter. Stomach and Bowel: Normal colonic caliber, without significant wall thickening. Peritoneum: No abnormal intraperitoneal fluid. No free air. Ventral Wall: No significant ventral hernia. Abdominal Nodes: No retroperitoneal or mesenteric adenopathy by size criteria. Vessels: Aorta and inferior vena cava are normal in size. PELVIS: Pelvic Organs: Unremarkable. Bladder: No bladder wall thickening, accounting for underdistention. Pelvic Nodes: No enlarged lymph nodes. Miscellaneous: No inguinal hernias are seen. Extensive diverticulosis is seen at the sigmoid colon and to a slightly lesser degree along the descending colon. The area of mild acute diverticulitis at the proximal to mid descending colon has resolved. No acute diverticulitis is found elsewhere. Bones: No aggressive osseous abnormality. IMPRESSION: 1. Resolution of descending colonic mild diverticulitis present 09/11/24. Extensive diverticulosis involves the sigmoid colon, without acute diverticulitis superimposed. A normal or abnormal appendix was not found but no secondary CT evidence of acute appendicitis is seen. 2. There are 2 separate hemangiomas within the liver, upper left and lower right hepatic lobes, stable over time. Note is made of a small hiatal hernia causing prominence of the esophagogastric junction, without retention of fluid or debris above this area. 3. Resolution of a previously reported nonobstructive calculus left kidney. Dictated by: Faisal Haynes M.D. on 10/28/2024 at 10:35 Approved by: Faisal Haynes M.D. on 10/28/2024 at 10:44
[2024-10-28 09:03] LABS: Estimated Glomerular Filt Rate > 60 mL/min (>60)
== END ==
LOC: CT 08:35
PROVIDERS: Radiology Diagnostic Radiology; PCP Family Medicine; Referring Provider Surgery; Visit Provider Surgery
DX: K57.92 Diverticulitis of intestine, part unspecified, without perforation or abscess without bleeding (principal); K57.30 Diverticulosis of large intestine without perforation or abscess without bleeding; D18.03 Hemangioma of intra-abdominal structures; K44.9 Diaphragmatic hernia without obstruction or gangrene; Z87.442 Personal history of urinary calculi
CPT/HCPCS: 36415; 74177; 82565; Q9967

== ENCOUNTER 2024-11-22 10:45 | Emergency (ER) | payer MEDICARE, OTHER, SELFPAY ==
[2024-11-22] VITALS (20 sets, daily range): BP systolic 114–146; BP diastolic 59–80; PULSE 72–86; RESP 20; TEMP 36.8; O2SAT 94–100; BMI 25.0
--- NOTE | 2024-11-22 11:05 | EKG_ITS ---
[address] [address] Test Date: 2024-11-22 Pat Name: Jerrell Cantu Department: [facility] Room: Gender: Female Nuclear Technician: ANGEL : 1955 Requested By: Order Number: [id number] Reading MD: José Manuel Khan Measurements Intervals [place] Rate: 73 P: 38 VA: 166 QRS: -24 QRSD: 88 T: 36 QT: 388 QTc: 427 Interpretive Statements Normal sinus rhythm Electronically Signed On 11-29-2024 18:53:42 PDT by José Manuel Khan
[2024-11-22 11:39] LABS: Add Manual Diff / Slide Review NO; Basophils Absolute Auto 0 /uL (0-100); Basophils Percent Auto 0.6 % (0-2); Eosinophils Absolute Auto 200 /uL (0-450); Eosinophils Percent Auto 2.6 % (2-4); Hematocrit 38.4 % (36-46); Hemoglobin 12.9 g/dL (12.0-16.0); Lymphocytes Absolute Auto 1800 /uL (1100-4500); Lymphocytes Percent Auto 23.5 % (25-40); Mean Corpuscular HGB Conc 33.6 % (30-36); Mean Corpuscular Hemoglobin 30.2 PG (26-34); Mean Corpuscular Volume 89.8 fL (80-100); Monocytes Absolute Auto 500 /uL (0-900); Monocytes Percent Auto 6.9 % (3-14); Neutrophils Absolute Auto 5000 /uL (1500-7000); Neutrophils Percent Auto 66.4 % (50-75); Platelet Count 258 X10^3/uL (150-400); Red Blood Cell Count 4.27 X10^6/uL (4.0-5.2); Red Cell Distribution Width 13.8 % (11.6-14.8); White Blood Cell Count 7.6 X10^3/uL (4.5-11.0)
[2024-11-22] MEDS: LACTATED RINGERS 1,000 ML 1000 ML IV ×2 (11:48→13:42)
[2024-11-22 11:50] LABS: Alanine Aminotransferase 52 IU/L (<35); Albumin 4.1 g/dL (3.5-5.0); Albumin Globulin Ratio 1.4 (1.0-2.8); Alkaline Phosphatase 51 U/L (38-126); Aspartate Aminotransferase 53 IU/L (14-36); BUN Creatinine Ratio 28.4 (6-22); Bilirubin Total 0.7 mg/dL (0.2-1.3); Blood Urea Nitrogen 23 mg/dL (7-17); Calcium 9.3 mg/dL (8.4-10.2); Carbon Dioxide 24 mmol/L (22-32); Chloride 106 mmol/L (98-107); Estimated Glomerular Filt Rate > 60 mL/min (>60); Globulin 2.9 g/dL (1.7-4.1); Glucose 97 mg/dL (80-110); Lipase 50 U/L (23-300); Potassium 4.6 mmol/L (3.4-5.1); Sodium 137 mmol/L (137-145)
[2024-11-22 11:51] LABS: HEMOLYSIS 87 (0-50)
--- NOTE | 2024-11-22 11:55 | ED_ITS ---
HPI - General Adult General Chief complaint: Dizziness Stated complaint: dehydrated/Low BP/Post Surgery Time Seen by Provider: 11/22/24 11:12 Source: patient Mode of arrival: Ambulatory History of Present Illness HPI narrative: 69-year-old female with history of recurrent diverticulitis, status post partial colectomy 11/16/24 at [facility] for that indication, believes that postoperatively she has been eating and drinking less, today felt some dizziness, low blood pressure measurement on home cuff reading 98/54 noted which seemed to low to her, they did not check any pulse rate or heart rate. She is here for some dizziness, feeling that she might be dehydrated, and concern for home low BP reading. She denies nausea or vomiting. She has postoperative abdominal pain that is gradually increasing, not increasing. No fevers or chills. No loose stools. No black or red stools. No painful urination or frequency of urination. Denies chest pain or shortness of breath. Related Data Home Medications Medication Instructions Recorded Confirmed lisinopril 40 mg tablet (Zestril) 20 mg PO DAILY 08/30/24 09/20/24 bupropion HCl 200 mg tablet,12 hr 200 mg PO DAILY 09/11/24 09/20/24 sustained-release (Wellbutrin SR) estradiol 0.01% (0.1 mg/gram) 1 g vaginal 3XW 09/11/24 09/20/24 vaginal cream (Estrace) tamsulosin 0.4 mg capsule 0.8 mg PO DAILY 11/22/24 Previous Rx's Medication Instructions Recorded Resmed AirSense 10 CPAP #1 ea 02/26/19 levothyroxine 88 mcg tablet 88 mcg PO QAM #90 tabs 07/23/24 (Synthroid) amlodipine 2.5 mg tablet 2.5 mg PO DAILY #90 tabs 11/08/24 Allergies Allergy/AdvReac Type Severity Reaction Status Date / Time carisoprodol [From SOMA] Allergy Severe Hives Verified 09/20/24 14:48 Sulfa (Sulfonamide Allergy Intermediate Confusion Verified 09/20/24 14:48 Antibiotics) [SULFA (SULFONAMIDE ANTIBIOTICS)] nitrofurantoin Allergy Unknown Verified 09/20/24 14:48 [NITROFURANTOIN] hydrochlorothiazide AdvReac Severe Hypotension Verified 09/20/24 14:48 ciprofloxacin [From Cipro] AdvReac Intermediate tendonitis Verified 09/20/24 14:48 morphine AdvReac Mild Pain Verified 09/20/24 14:48 Patient History Medical History History of kidney stones History of pyelonephritis Encounter for initial preventive physical examination covered by Medicare Gross hematuria (11/02/13) Obstructive sleep apnea of adult Postmenopausal atrophic vaginitis History of UTI Pyelonephritis of right kidney Right ureteral calculus Sleep apnea Diverticulosis Rosacea (11/20/15) Hypothyroidism (11/02/13) Surgical History Hx of cystoscopy (06/29/21) Anesthesia History of bilateral salpingo-oophorectomy (BSO) (2012) History of lithotripsy (2012) Status post surgery (07/17/10) Family History Brother Age: 73 Colon cancer Mother Cancer Pneumonia Ovarian cancer Father Lung cancer Colon cancer Alcoholism Grandfather [place] (myocardial infarction) Grandmother No problems noted. Sister Diabetes mellitus Family/Other Ovarian cancer Family/Other Heart disease Family/Other Heart disease Family/Other Heart disease Family/Other Heart disease Family/Other Heart disease Family/Other Heart disease Social History marital status: household members: spouse Smoking Status: Never smoker alcohol intake: current substance use type: does not use Smoking Status: Never smoker alcohol intake frequency: 0-2 drinks per day Exam Narrative Exam Narrative: GENERAL: Well-developed patient, in mild distress. HEAD: Atraumatic. Normocephalic. EYES: Pupils equal round and reactive. Extraocular motions intact. No scleral icterus. No injection or drainage. ENT: Nose without bleeding, purulent drainage. Throat without erythema, tonsillar hypertrophy or exudate. Airway patent. NECK: Trachea midline. Non tender CARDIOVASCULAR: Regular rate and rhythm without murmurs, gallops, or rubs. RESPIRATORY: Clear to auscultation. Breath sounds equal bilaterally. No wheezes, rales, or rhonchi. GASTROINTESTINAL: Abdomen soft, non-tender, nondistended. EXTREMITIES: No edema or joint tenderness. BACK: Nontender without deformity or crepitance. No flank tenderness. NEURO: AOx3. Motor functions grossly nonfocal SKIN: No rash or erythema of visible areas Initial Vital Signs Initial Vital Signs: Vital Signs Pulse Rate 86 11/22/24 10:50 Pulse Oximetry 96 11/22/24 10:50 Course Orders Ordered: ED Orders 11/22/24 13:30 Trop I [Troponin I] Stat Discontinued Medications Acetaminophen (Acetaminophen 325 Mg Tablet) 975 mg PO NOW ONE Stop: 11/22/24 16:28 Last Admin: 11/22/24 16:35 Dose: Not Given Documented By: VIKI Lactated Ringer's (Lactated Ringers) 1,000 mls @ 1,000 mls/hr IV BOLUS ONE Stop: 11/22/24 12:30 Last Infusion: 11/22/24 12:50 Dose: Infused Documented By: Admin: 11/22/24 11:48 Dose: 1,000 mls/hr Documented By: VIKI Lactated Ringer's (Lactated Ringers) 1,000 mls @ 1,000 mls/hr IV BOLUS ONE Stop: 11/22/24 14:34 Last Infusion: 11/22/24 14:51 Dose: Infused Documented By: Admin: 11/22/24 13:42 Dose: 1,000 mls/hr Documented By: JACKSON Ondansetron HCl (Ondansetron 4 Mg/2 Ml Inj) 4 mg IV NOW PRN PRN Reason: Nausea And Vomiting Ondansetron HCl (Ondansetron 4 Mg Odt) 4 mg PO NOW PRN PRN Reason: Nausea And Vomiting Vital Signs Vital signs: Vital Signs - 8 hr 11/22/24 14:00 11/22/24 14:00 11/22/24 14:30 Pulse Rate 80 Blood Pressure 126/67 125/66 Pulse Oximetry 94 11/22/24 14:30 11/22/24 15:00 11/22/24 15:01 Pulse Rate 77 81 80 Blood Pressure Pulse Oximetry 97 98 97 11/22/24 15:01 11/22/24 15:16 11/22/24 15:16 Pulse Rate 83 Blood Pressure 146/72 H 144/80 H Pulse Oximetry 98 11/22/24 15:30 11/22/24 15:30 11/22/24 16:00 Pulse Rate 83 Blood Pressure 130/72 142/71 H Pulse Oximetry 96 11/22/24 16:00 Pulse Rate 77 Blood Pressure Pulse Oximetry 96 Medical Decision Making Lab Data Lab results reviewed: Yes I reviewed the patient's lab results. Lab results narrative: White blood cell count 7600, hemoglobin 12.9, platelets adequate. Glucose 97. BUN 23 with creatinine 0.81. Sodium 137, potassium 4.6, chloride 106, serum CO2 24. Mild transaminitis noted, normal total bilirubin and alkaline phosphatase. Lipase normal. Urine dip negative for blood, nitrate, ketones, glucose. Troponin x2 interval sets negative/unmeasurable. 11/22/24 11:00 11/22/24 11:00 Labs: Lab Results 11/22/24 11/22/24 Range/Units 11:00 13:30 WBC 7.6 (4.5-11.0) X10^3/uL RBC 4.27 (4.0-5.2) X10^6/uL Hgb 12.9 (12.0-16.0) g/dL Hct 38.4 (36-46) % MCV 89.8 (80-100) fL MCH 30.2 (26-34) PG MCHC 33.6 (30-36) % RDW 13.8 (11.6-14.8) % Plt Count 258 (150-400) X10^3/uL Neut % (Auto) 66.4 (50-75) % Lymph % (Auto) 23.5 L (25-40) % [place] % (Auto) 6.9 (3-14) % Eos % (Auto) 2.6 (2-4) % Baso % (Auto) 0.6 (0-2) % Neut # (Auto) 5000 (5356-4665) /uL Lymph # (Auto) 1800 (2277-4999) /uL [place] # (Auto) 500 (0-900) /uL Eos # (Auto) 200 (0-450) /uL Baso # (Auto) 0 (0-100) /uL Sodium 137 (137-145) mmol/L Potassium 4.6 (3.4-5.1) mmol/L Chloride 106 (98-107) mmol/L Carbon Dioxide 24 (22-32) mmol/L BUN 23 H (7-17) mg/dL Creatinine 0.81 (0.52-1.04) mg/dL Estimated GFR > 60 (>60) mL/min BUN/Creatinine Ratio 28.4 H (6-22) Glucose 97 (80-110) mg/dL Calcium 9.3 (8.4-10.2) mg/dL Total Bilirubin 0.7 (0.2-1.3) mg/dL AST 53 H (14-36) IU/L ALT 52 H (<35) IU/L Alkaline Phosphatase 51 (38-126) U/L Troponin I < 0.012 < 0.012 (0.01-0.034) ng/mL Total Protein 7.0 (6.3-8.2) g/dL Albumin 4.1 (3.5-5.0) g/dL Globulin 2.9 (1.7-4.1) g/dL Albumin/Globulin Ratio 1.4 (1.0-2.8) Lipase 50 (23-300) U/L Urine Dip Bedside Urine Glucose Negative Bedside Urine Bilirubin - Negative Bedside Urine Ketone - Negative Urine Specific [place] 1.010 Bedside Urine Occult Blood - Negative Bedside Urine pH 7.0 Bedside Urine Protein - Negative Bedside Urine Urobilinogen - Negative Bedside Urine Nitrite - Negative Bedside Urine Leukocytes - Negative Esterase Point of care testing: Urine Dip Bedside Urine Glucose Negative Bedside Urine Bilirubin - Negative Bedside Urine Ketone - Negative Urine Specific [place] 1.010 Bedside Urine Occult Blood - Negative Bedside Urine pH 7.0 Bedside Urine Protein - Negative Bedside Urine Urobilinogen - Negative Bedside Urine Nitrite - Negative Bedside Urine Leukocytes - Negative Esterase ECG Data Attestation: I personally reviewed and interpreted this ECG as follows: Interpretation: Normal sinus rhythm with rate of 73, no obvious ST segment elevation or depression changes. T-wave flattening lead 3 but upright in leads 2 and AVF contiguous inferior leads. AK 166, QRS 88, QTC 427. MDM Narrative Medical decision making narrative: 69-year-old female now postop day 6 from partial colectomy [facility], decreased oral intake, low blood pressure, some dizziness sensation, concerned that she might be dehydrated. Afebrile, sirs screen negative. Not having increasing abdominal pain, no significant tenderness on examination. Screening labs sent. Urinalysis not obviously infected, ketones negative. IV fluid bolus had been given. EKG with normal sinus rhythm, no obvious acute ischemic changes. Trop x2 negative. IVNS one liter, felt improved but still some dizzy walking to bathroom, additional 1L IVNS, felt better on ambulation. Advised DC and FU with her surgeon post colectomy as planned. Encouraged to drink frequent sips fluids. Home with . Return precautions discussed. Discharge Plan Departure Patient Disposition: Home Clinical Impression: Dehydration, Dizziness Activity Restrictions/Additional Instructions: Recent abdominal surgery, some dizziness in concern for possible dehydration. No fever on triage. Screening labs were unremarkable. Urinalysis negative for infection. IV fluids given, attempted ambulation with some improved but residual dizziness, additional IV fluids given, symptoms further improved. Postoperative discomfort, no advanced imaging of the abdomen performed for now. Encouraged to take regular frequent oral fluids. Recheck with your surgeon post operatively as planned. Return earlier to this/nearest emergency department for any change worsening symptoms or any concerns prior. Prescriptions: No Action (DME) Resmed AirSense 10 CPAP Qty: 1 0RF Dose Instruction: As directed Rx Instructions: As directed with air pressure auto set 4-12 levothyroxine [Synthroid] 88 mcg tablet 88 mcg PO QAM Qty: 90 3RF amlodipine 2.5 mg tablet 2.5 mg PO DAILY Qty: 90 3RF lisinopril [Zestril] 40 mg tablet 20 mg PO DAILY estradiol [Estrace] 0.01 % (0.1 mg/gram) cream 1 g vaginal 3XW bupropion HCl [Wellbutrin SR] 200 mg tablet sustained-release 12 hr 200 mg PO DAILY tamsulosin 0.4 mg capsule 0.8 mg PO DAILY Referrals: Bertrand Rocha MD [Primary Care Provider] - Stand Alone Forms: Patient Portal/API/Survey
[2024-11-22 13:30] LABS: Troponin I < 0.012 ng/mL (0.01-0.034)
[2024-11-22 14:04] LABS: Troponin I < 0.012 ng/mL (0.01-0.034)
--- NOTE | 2024-11-22 15:23 | PC.NURSE ---
Pt ambulated to bathroom with steady gait. Denies nausea and dizziness.
== END 2024-11-22 16:37 | disposition home or self-care (01) ==
PROVIDERS: Emergency Provider Emergency Medicine; PCP Family Medicine
DX: R42 Dizziness and giddiness (principal); R03.1 Nonspecific low blood-pressure reading; Z90.49 Acquired absence of other specified parts of digestive tract
CPT/HCPCS: 36415; 80053; 81003; 83690; 84484; 85025; 93005; 96360; 96361; 99284

== ENCOUNTER → 2025-04-22 07:21 | Outpatient (CLI) | payer MEDICARE, OTHER, SELFPAY ==
[2025-04-16 14:47] VITALS: BMI 25.7
[2025-04-22 07:53] LABS: Cholesterol 189 mg/dL (140-199); HDL Cholesterol 52 mg/dL (40-60); Triglycerides 79 mg/dL (35-150)
[2025-04-22 08:25] LABS: TSH w/ Reflex to FT4 5.07 uIU/mL (0.47-4.68)
[2025-04-22 08:50] LABS: Free T4, Direct Thyroxine 1.09 ng/dL (0.78-2.19)
== END ==
PROVIDERS: PCP Family Medicine; Referring Provider Family Medicine; Visit Provider Physician Assistant
DX: E78.5 Hyperlipidemia, unspecified (principal); I10 Essential (primary) hypertension; E03.9 Hypothyroidism, unspecified
CPT/HCPCS: 36415; 80061; 84439; 84443

== ENCOUNTER → 2025-06-15 09:42 | Outpatient (CLI) | payer MEDICARE, OTHER, SELFPAY ==
[2025-04-16 14:47] VITALS: BMI 25.7
[2025-06-15 11:45] LABS: TSH w/ Reflex to FT4 0.24 uIU/mL (0.47-4.68)
[2025-06-15 12:10] LABS: Free T4, Direct Thyroxine 1.74 ng/dL (0.78-2.19)
== END ==
PROVIDERS: Physician Assistant; PCP Family Medicine; Referring Provider Family Medicine; Visit Provider Family Medicine
DX: E03.9 Hypothyroidism, unspecified (principal)
CPT/HCPCS: 36415; 84439; 84443

== ENCOUNTER → 2025-08-03 07:20 | Outpatient (CLI) | payer MEDICARE, OTHER, SELFPAY ==
[2025-04-16 14:47] VITALS: BMI 25.7
--- NOTE | 2025-08-03 07:23 | DI.US.S_ITS ---
PROCEDURE: US PELVIC COMPLETE INDICATIONS: DYSFUNCTIONAL BLEEDING. OVARIES REMOVED. ESTROGEN CREAM USE. TECHNIQUE: Real-time scanning was performed of the pelvic organs, with image documentation. Additional endovaginal scanning was necessary due to incomplete visualization of the adnexal and endometrial structures by transabdominal scanning. COMPARISON: [facility], , PELVIC COMPLETE, 07/07/2017, 12:15. FINDINGS: Uterus: Uterus is retroverted and normal in size at 6.6 x 5.7 x 4.0 cm. The myometrium is heterogeneous with multiple macrocalcification. Two uterine fibroids are noted. 1.9 x 1.5 x 1.3 cm intramural uterine fibroid in the right posterior wall. 3.0 x 3.2 x 3.2 cm intramural uterine fibroid in the midline anterior wall. The border is not well defined. The endometrium measures 3 mm combined thickness. Ovaries: Surgically absent. No adnexal masses. Other: No free pelvic fluid. Postvoid residual of 97 cc. IMPRESSION: Heterogeneous mild knee tree-in-bud with multiple macro calcifications. Two uterine fibroids. Endometrial thickness is within normal limits. Postvoid residual of 97 cc. We strive to produce accurate, complete, and clear reports of imaging services. To assist us in improving patient care, this report was composed using standard report templates and voice recognition software. Therefore, it may contain abnormal punctuation, insertions and/or omissions. Occasional wrong-word or sound-alike substitutions may occur. Though we review the report and make efforts to correct it, we do recommend that the report be read carefully in proper context to recognize any text inaccuracies. Dictated by: Donna Maher M.D. on 08/03/2025 at 12:02 Approved by: Donna Maher M.D. on 08/03/2025 at 12:07
== END ==
LOC: US 07:21
PROVIDERS: PCP Family Medicine; Referring Provider Family Medicine; Visit Provider Physician Assistant
DX: N93.8 Other specified abnormal uterine and vaginal bleeding (principal); N85.8 Other specified noninflammatory disorders of uterus; D25.1 Intramural leiomyoma of uterus; Z90.722 Acquired absence of ovaries, bilateral
CPT/HCPCS: 76830; 76856

== ENCOUNTER → 2025-08-08 07:38 | Outpatient (CLI) | payer MEDICARE, OTHER, SELFPAY ==
[2025-04-16 14:47] VITALS: BMI 25.7
[2025-08-08 09:04] LABS: Cholesterol 147 mg/dL (140-199); HDL Cholesterol 71 mg/dL (40-60); Triglycerides 86 mg/dL (35-150)
[2025-08-08 09:33] LABS: Thyroid Stimulating Hormone 5.62 uIU/mL (0.47-4.68)
== END ==
PROVIDERS: PCP Family Medicine; Referring Provider Physician Assistant; Visit Provider Physician Assistant
DX: E78.00 Pure hypercholesterolemia, unspecified (principal); G45.9 Transient cerebral ischemic attack, unspecified; E03.9 Hypothyroidism, unspecified
CPT/HCPCS: 36415; 80061; 84443